=== PATIENT | male | born 1940 | race Caucasian/White ===

== ENCOUNTER → 2016-08-18 | Outpatient (CLI) | payer MEDICARE, BC | LOC: MW.CHNEURO 08:00 | PROVIDERS: ATTEND Psychiatry & Neurology Neuromuscular Medicine | DX: M79.673 Pain in unspecified foot (principal) | CPT/HCPCS: 99214 ==

== ENCOUNTER → 2016-09-30 | Outpatient (CLI) | payer MEDICARE, BC | LOC: MW.CHGS 08:00 | PROVIDERS: ATTEND Surgery | DX: R10.32 Left lower quadrant pain (principal); R19.4 Change in bowel habit; Z86.010 Personal history of colon polyps; J44.9 Chronic obstructive pulmonary disease, unspecified | CPT/HCPCS: 99214 ==

== ENCOUNTER 2016-10-22 08:50 | Day surgery (SDC) | payer MEDICARE, BC ==
[~2016-10-22 08:50] MED LIST: Lactated Ringers 1,000 ML IV SCH; Lidocaine 2% 5 ML SDV ONE; Propofol 200 MG/20 ML SDV ONE
--- NOTE | 2016-10-22 09:35 | PCM.PREANE ---
Preanesthetic Assessment - Anesthesia/Transfusion/Family Hx Anesthesia History: Prior Anesthesia Without Reaction Other Type of Anesthesia Reaction Comment: Denies any known problems in past Family History of Anesthesia Reaction: No Transfusion History: No Prior Transfusion(s) Intubation History: Unknown - Review of Systems General: No Symptoms Pulmonary: No Symptoms Cardiovascular: No Symptoms Neurological: No Symptoms Other: Reports: None - Physical Assessment O2 Sat by Pulse Oximetry: 95 Respiratory Rate: 16 Vital Signs: Last Vital Signs Temp 36.4 C 10/22/16 09:17 Pulse 90 10/22/16 09:16 Resp 16 10/22/16 09:16 BP 144/96 H 10/22/16 09:17 Pulse Ox 95 10/22/16 09:16 Height: 1.91 m Weight: 126.552 kg ASA Class: 3 Mental Status: Alert & Oriented x3 Airway Class: Mallampati = 2 Dentition: Reports: Normal Dentition Thyro-Mental Finger Breadths: 2 Mouth Opening Finger Breadths: 3 ROM/Head Extension: Limited/Partial Lungs: Clear to auscultation, Normal respiratory effort Cardiovascular: Regular Rate, Regular Rhythm - Allergies Allergies/Adverse Reactions: Allergies Allergy/AdvReac Type Severity Reaction Status Date / Time No Known Allergies Allergy Verified 05/14/16 12:38 - Blood Blood Available: No - Anesthesia Plan Pre-Op Medication Ordered: None - Acknowledgements Anesthesia Type Planned: MAC Pt an Appropriate Candidate for the Planned Anesthesia: Yes Alternatives and Risks of Anesthesia Discussed w Pt/Guardian: Yes Pt/Guardian Understands and Agrees with Anesthesia Plan: Yes PreAnesthesia Questionnaire HEENT History: Reports: Other (See Below) Other HEENT History: wears glasses Cardiovascular History: Reports: High Cholesterol, Hypertension Respiratory History: Reports: COPD, Other (See Below) Other Respiratory History: smoked 2 to 3 packs of cigarettes for approx 35 yrs, quit smoking 20 yrs ago Gastrointestinal History: Reports: Colon Polyp, Diverticulosis, GERD Genitourinary History: Reports: BPH, Renal Calculus, UTI, Recurrent Other Genitourinary History: hx bladder cancer Musculoskeletal History: Reports: Fracture Other Musculoskeletal History: left leg Neurological History: Reports: Neuropathy, Peripheral Psychiatric History: Reports: None Endocrine/Metabolic History: Reports: Diabetes, Type II, Obesity/BMI 30+ Hematologic History: Reports: None Immunologic History: Reports: None Oncologic (Cancer) History: Reports: Bladder Dermatologic History: Reports: None - Infectious Disease History Infectious Disease History: Reports: None - Past Surgical History Head Surgeries/Procedures: Reports: None HEENT Surgical History: Reports: Cataract Surgery Cardiovascular Surgical History: Reports: None Respiratory Surgical History: Reports: None GI Surgical History: Reports: Appendectomy, Colonoscopy, EGD Other Female Surgeries/Procedures: multiple cystoscopies Male Surgical History: Reports: Kidney Stone Extraction, TURBT-Transurethral Resection of Bladder Tumor Endocrine Surgical History: Reports: None Neurological Surgical History: Reports: None Musculoskeletal Surgical History: Reports: ORIF Other Musculoskeletal Surgeries/Procedures:: left leg with hardware Oncologic Surgical History: Reports: Other (See Below) Other Oncologic Surgeries/Procedures: TURBT Dermatological Surgical History: Reports: None - SUBSTANCE USE Smoking Status *Q: Former Smoker Tobacco Use Within Last Twelve Months: Smokeless Tobacco Days Per Week of Alcohol Use: 7 Number of Drinks Per Day: 2 Total Drinks Per Week: 14 Recreational Drug Use History: No - HOME MEDS Home Medications: Home Meds Metoprolol Succinate [Toprol XL] 100 mg PO DAILY 10/05/13 [History] atorvaSTATin [Lipitor] 20 mg PO BEDTIME 10/05/13 [History] metFORMIN [Glucophage] 1,000 mg PO DAILY 06/05/14 [History] Tamsulosin [Flomax] 0.4 mg PO DAILY 02/26/15 [History] Aspirin [[place] Aspirin] 81 mg PO DAILY 10/20/16 [History] Famotidine 40 mg PO ASDIRECTED 10/20/16 [History] Lisinopril 20 mg PO DAILY 10/20/16 [History] - CURRENT (IN HOUSE) MEDS Current Meds: Current Medications Lactated Ringer's (Ringers, Lactated) 1,000 mls @ 125 mls/hr IV ASDIRECTED [facility] Last Admin: 10/22/16 09:15 Dose: 125 mls/hr Discontinued Medications Lidocaine (Xylocaine-Mpf 2%) Confirm Administered Dose 5 ml .ROUTE .STK-MED ONE Stop: 10/22/16 07:34 Propofol (Diprivan 20 Ml) Confirm Administered Dose 400 mg .ROUTE .STK-MED ONE Stop: 10/22/16 07:35
[2016-10-22] MEDS ORDERED: Labetalol 100 MG/20 ML MDV ONE (10:14)
--- NOTE | 2016-10-22 10:42 | PCM.OPNOTE ---
- General Post-Op/Procedure Note Date of Surgery/Procedure: 10/22/16 Operative Procedure(s): Colonoscopy with snare sigmoid polypectomy and cold ascending colon and descending colon polypectomies Pre Op Diagnosis: Personal history of colon polyps. Decreased stool caliber. Left lower quadrant abdominal pain. Post-Op Diagnosis: Ascending, descending and sigmoid polyps Anesthesia Technique: MAC (ASA III) Primary Surgeon: Yanick Mckenzie Condition: Good Free Text/Narrative:: Dictation [id number] CPT 52698 and [id number]
[2016-10-22] MEDS ORDERED: Lactated Ringers 1,000 ML IV SCH (10:45)
--- NOTE | 2016-10-22 11:01 | PCM.POSTAN ---
POST ANESTHESIA ASSESSMENT - MENTAL STATUS Mental Status: alert, oriented - RESPIRATORY Respiratory Status: respiratory rate WNL, airway patent, O2 saturation stable - CARDIOVASCULAR CV Status: pulse rate WNL, blood pressure stable - GASTROINTESTINAL GI Status: no symptoms - POST OP HYDRATION Hydration Status: adequate & stable - OBSERVATIONS Free Text/Narrative:: no anesthesia problems
[2016-10-22 11:49] VITALS: BP 135/97
--- NOTE | 2016-10-22 13:49 | OR ---
SURGEON: Yanick Mckenzie M.D. DATE OF PROCEDURE: 10/22/2016 OPERATION PERFORMED: Colonoscopy with snare sigmoid polypectomy and cold descending colon, and ascending colon polypectomy. ANESTHESIA: MAC. ASA CLASSIFICATION: III. PREOPERATIVE DIAGNOSES: 1. Personal history of colon polyps. 2. Change in bowel habits. 3. Decreased stool caliber. POSTOPERATIVE DIAGNOSIS: Sigmoid descending colon and ascending colon polyps. DESCRIPTION OF PROCEDURE: The patient was taken to the endoscopy room and positioned on the endoscopy table in the left lateral decubitus position. Time-out was called for appropriate identification of the patient and procedure. The colonoscope was inserted into the rectum and advanced without significant difficulty to the cecum, where the colonoscope was retroflexed to visualize the ascending colon from below. The colonoscope was then straightened and slowly withdrawn. Two polyps were encountered in the ascending colon and removed with the cold biopsy forceps. The colonoscope was further withdrawn visualizing the transverse colon, descending colon, where another polyp was encountered and again removed with the cold biopsy forceps. A larger polyp was encountered in the sigmoid colon and removed with a snare electrocautery and recovered. The colonoscope was then reinserted and the polypectomy site was inspected. No bleeding was noted. The colonoscope was then withdrawn to the rectum and retroflexed to visualize the anal orifice from above. No acute hemorrhoidal changes were noted. No distal colon polyps or tumors were identified. The colonoscope was then straightened, the rectum aspirated, and the colonoscope removed. The patient tolerated the procedure well and was taken to the recovery room in stable condition. ANDREW / SANTA /[id number]
== END 2016-10-22 11:33 | disposition home or self-care (01) ==
LOC: MW.SDS 08:50
PROVIDERS: ATTEND Surgery
PROC: 0DBK8ZZ Excision of Ascending Colon, Via Natural or Artificial Opening Endoscopic (ICD-10-PCS; principal; 2016-10-22)
PROC: 0DBL8ZZ Excision of Transverse Colon, Via Natural or Artificial Opening Endoscopic (ICD-10-PCS; 2016-10-22)
PROC: 0DBM8ZZ Excision of Descending Colon, Via Natural or Artificial Opening Endoscopic (ICD-10-PCS; 2016-10-22)
PROC: 0DBN8ZZ Excision of Sigmoid Colon, Via Natural or Artificial Opening Endoscopic (ICD-10-PCS; 2016-10-22)
DX: Z12.11 Encounter for screening for malignant neoplasm of colon (principal); D12.2 Benign neoplasm of ascending colon; D12.4 Benign neoplasm of descending colon; D12.3 Benign neoplasm of transverse colon; D12.5 Benign neoplasm of sigmoid colon; Z86.010 Personal history of colon polyps; K21.9 Gastro-esophageal reflux disease without esophagitis; N40.0 Benign prostatic hyperplasia without lower urinary tract symptoms; J44.9 Chronic obstructive pulmonary disease, unspecified; I10 Essential (primary) hypertension; E78.5 Hyperlipidemia, unspecified; E78.00 Pure hypercholesterolemia, unspecified; E11.42 Type 2 diabetes mellitus with diabetic polyneuropathy; E66.9 Obesity, unspecified; Z87.442 Personal history of urinary calculi; Z87.440 Personal history of urinary (tract) infections; Z87.891 Personal history of nicotine dependence; Z85.51 Personal history of malignant neoplasm of bladder; Z79.82 Long term (current) use of aspirin; Z79.84 Long term (current) use of oral hypoglycemic drugs; Z79.899 Other long term (current) drug therapy; Z98.49 Cataract extraction status, unspecified eye; Z90.49 Acquired absence of other specified parts of digestive tract; Z98.890 Other specified postprocedural states; Z68.34 Body mass index [BMI] 34.0-34.9, adult
CPT/HCPCS: 45380; 45385; 88305; J7120; 00810; J2704

== ENCOUNTER 2016-11-24 11:53 | Day surgery (SDC) | payer MEDICARE, BC ==
[~2016-11-24 11:53] MED LIST changes: -Lidocaine 2% 5 ML SDV ONE; -Propofol 200 MG/20 ML SDV ONE
--- NOTE | 2016-11-24 12:38 | PCM.PREANE ---
Preanesthetic Assessment - Anesthesia/Transfusion/Family Hx Anesthesia History: Prior Anesthesia Without Reaction Other Type of Anesthesia Reaction Comment: Denies any known problems in past Family History of Anesthesia Reaction: No Transfusion History: No Prior Transfusion(s) Intubation History: Unknown - Review of Systems General: No Symptoms Pulmonary: No Symptoms Cardiovascular: No Symptoms Gastrointestinal: No symptoms Neurological: No Symptoms Other: Reports: None - Physical Assessment Height: 1.91 m Weight: 125.192 kg ASA Class: 3 Mental Status: Alert & Oriented x3 Airway Class: Mallampati = 2 Dentition: Reports: Normal Dentition, Friendly(s) (multiple) Thyro-Mental Finger Breadths: 3 Mouth Opening Finger Breadths: 3 ROM/Head Extension: Limited/Partial Lungs: Clear to auscultation, Normal respiratory effort Cardiovascular: Regular Rate, Regular Rhythm - Allergies Allergies/Adverse Reactions: Allergies Allergy/AdvReac Type Severity Reaction Status Date / Time No Known Allergies Allergy Verified 05/14/16 12:38 - Blood Blood Available: No - Anesthesia Plan Pre-Op Medication Ordered: None Beta Yeimi: Metoprolol Med Last Dose Date: 11/24/16 Med Last Dose Time: 06:30 - Acknowledgements Anesthesia Type Planned: General Anesthesia Pt an Appropriate Candidate for the Planned Anesthesia: Yes Alternatives and Risks of Anesthesia Discussed w Pt/Guardian: Yes Pt/Guardian Understands and Agrees with Anesthesia Plan: Yes PreAnesthesia Questionnaire HEENT History: Reports: Other (See Below) Other HEENT History: wears glasses Cardiovascular History: Reports: High Cholesterol, Hypertension Respiratory History: Reports: COPD, Other (See Below) Other Respiratory History: smoked 2 to 3 packs of cigarettes for approx 35 yrs, quit smoking 20 yrs ago Gastrointestinal History: Reports: Colon Polyp, Diverticulosis, GERD Genitourinary History: Reports: BPH, Renal Calculus, UTI, Recurrent Other Genitourinary History: hx transitional cell bladder cancer Musculoskeletal History: Reports: Fracture Other Musculoskeletal History: left leg Neurological History: Reports: Neuropathy, Peripheral Psychiatric History: Reports: None Endocrine/Metabolic History: Reports: Diabetes, Type II, Obesity/BMI 30+ Hematologic History: Reports: None Immunologic History: Reports: None Oncologic (Cancer) History: Reports: Bladder Dermatologic History: Reports: None - Infectious Disease History Infectious Disease History: Reports: None - Past Surgical History Head Surgeries/Procedures: Reports: None HEENT Surgical History: Reports: Cataract Surgery Cardiovascular Surgical History: Reports: None Respiratory Surgical History: Reports: None GI Surgical History: Reports: Appendectomy, Colonoscopy, EGD Other Female Surgeries/Procedures: multiple cystoscopies Male Surgical History: Reports: Kidney Stone Extraction, TURBT-Transurethral Resection of Bladder Tumor Endocrine Surgical History: Reports: None Neurological Surgical History: Reports: None Musculoskeletal Surgical History: Reports: ORIF Other Musculoskeletal Surgeries/Procedures:: left leg with hardware Oncologic Surgical History: Reports: Other (See Below) Other Oncologic Surgeries/Procedures: TURBT Dermatological Surgical History: Reports: None - SUBSTANCE USE Smoking Status *Q: Former Smoker Tobacco Use Within Last Twelve Months:  Days Per Week of Alcohol Use: 7 Number of Drinks Per Day: 2 Total Drinks Per Week: 14 Recreational Drug Use History: No - HOME MEDS Home Medications: Home Meds Metoprolol Succinate [Toprol XL] 100 mg PO DAILY 10/05/13 [History] atorvaSTATin [Lipitor] 20 mg PO BEDTIME 10/05/13 [History] Tamsulosin [Flomax] 0.4 mg PO DAILY 02/26/15 [History] Aspirin [[place] Aspirin] 81 mg PO DAILY 10/20/16 [History] Famotidine 40 mg PO ASDIRECTED 10/20/16 [History] Lisinopril 20 mg PO DAILY 10/20/16 [History] metFORMIN HCl [Glucophage] 500 mg PO BID 11/19/16 [History] - CURRENT (IN HOUSE) MEDS Current Meds: Current Medications Lactated Ringer's (Ringers, Lactated) 1,000 mls @ 100 mls/hr IV ASDIRECTED [facility] Last Admin: 11/24/16 12:12 Dose: 100 mls/hr
[2016-11-24] MEDS ORDERED: fentaNYL 250 MCG/5 ML SDV ONE (12:50)
[2016-11-24] MEDS ORDERED: Ketorolac 30 MG/ML SDV ONE (12:50)
[2016-11-24] MEDS ORDERED: Propofol 200 MG/20 ML SDV ONE (12:50)
[2016-11-24] MEDS ORDERED: Midazolam 1 MG/ML 2 ML SDV ONE (12:50)
[2016-11-24] MEDS ORDERED: Lidocaine 2% 5 ML SDV ONE (12:50)
[2016-11-24] MEDS ORDERED: Ondansetron 4 MG/2 ML SDV ONE (12:50)
--- NOTE | 2016-11-24 15:24 | PCM48HPAN ---
Post Anesthesia Note - EVALUATION WITHIN 48HRS OF ANESTHETIC Vital Signs in Normal Range: Yes Patient Participated in Evaluation: Yes Respiratory Function Stable: Yes Airway Patent: Yes Cardiovascular Function Stable: Yes Hydration Status Stable: Yes Pain Control Satisfactory: Yes Nausea and Vomiting Control Satisfactory: Yes Mental Status Recovered: Yes
[2016-11-24 16:09] VITALS: BP 132/80
--- NOTE | 2017-02-01 23:15 | OR ---
SURGEON: Ever Urbina M.D. DATE OF PROCEDURE: 11/24/2016 PREOPERATIVE DIAGNOSIS: History of bladder tumor. POSTOPERATIVE DIAGNOSIS: History of bladder tumor. OPERATION: Cystoscopy. FINDINGS: No tumors found. DESCRIPTION: The patient was given general anesthesia, placed in dorsal lithotomy position, prepped and draped in sterile drapes. Cystourethroscopy was done using the 22- [place] cystoscope. The urethra was unremarkable. He has partial prostatic obstruction. The inside of the bladder showed no tumors. He had 2+ trabeculations. The patient tolerated the procedure well and was taken to the recovery room in good condition. MARTHA / SANTA /[id number]
== END 2016-11-24 16:15 | disposition home or self-care (01) ==
LOC: MW.SDS 11:53
PROVIDERS: ATTEND Urology
DX: N40.0 Benign prostatic hyperplasia without lower urinary tract symptoms (principal); E78.00 Pure hypercholesterolemia, unspecified; I10 Essential (primary) hypertension; J44.9 Chronic obstructive pulmonary disease, unspecified; E11.42 Type 2 diabetes mellitus with diabetic polyneuropathy; E66.9 Obesity, unspecified; Z85.51 Personal history of malignant neoplasm of bladder; Z87.891 Personal history of nicotine dependence; Z87.442 Personal history of urinary calculi; Z87.440 Personal history of urinary (tract) infections; Z86.010 Personal history of colon polyps; Z79.82 Long term (current) use of aspirin; Z79.84 Long term (current) use of oral hypoglycemic drugs; Z79.899 Other long term (current) drug therapy; Z68.34 Body mass index [BMI] 34.0-34.9, adult; Z90.49 Acquired absence of other specified parts of digestive tract; Z90.89 Acquired absence of other organs; Z98.890 Other specified postprocedural states
CPT/HCPCS: 52000; J1885; J2250; J2405; J3010; J7120; 00910; J2704

== ENCOUNTER 2018-08-08 06:25 | Day surgery (SDC) | payer MEDICARE, BC ==
[~2018-08-08 06:25] MED LIST changes: +ceFAZolin 2 GM in Premix Bag 1 BAG IV SCH
[2018-08-08] MEDS ORDERED: fentaNYL 100 MCG/2 ML SDV ONE ×2 (07:04→09:32)
[2018-08-08] MEDS ORDERED: Propofol 200 MG/20 ML SDV ONE (07:04)
[2018-08-08] MEDS ORDERED: Bupivacaine 0.5% 10 ML SDV ONE (07:13)
[2018-08-08] MEDS ORDERED: Lidocaine 1% 20 ML MDV ONE (07:14)
[2018-08-08] MEDS ORDERED: Heparin Sodium 100 Units/ML 3 ML Syringe ONE ×3 (07:14→10:39)
--- NOTE | 2018-08-08 08:05 | PCM.PREANE ---
Preanesthetic Assessment - Anesthesia/Transfusion/Family Hx Anesthesia History: Prior Anesthesia Without Reaction Other Type of Anesthesia Reaction Comment: Denies any known problems in past Family History of Anesthesia Reaction: No Transfusion History: No Prior Transfusion(s) Intubation History: Unknown - Review of Systems General: No Symptoms Cardiovascular: No Symptoms Gastrointestinal: No Symptoms Neurological: No Symptoms Other: Reports: None - Physical Assessment NPO Status Date: 08/07/18 O2 Sat by Pulse Oximetry: 94 Respiratory Rate: 16 Vital Signs: Last Vital Signs Temp 97.2 F 08/08/18 07:10 Pulse 91 08/08/18 07:10 Resp 16 08/08/18 07:10 BP 128/92 H 08/08/18 07:10 Pulse Ox 94 L 08/08/18 07:10 Height: 6 ft 3 in Weight: 121.563 kg ASA Class: 3 Airway Class: Mallampati = 3 ROM/Head Extension: Full Lungs: Clear to Auscultation, Normal Respiratory Effort Cardiovascular: Regular Rate, Regular Rhythm - Lab Values: Laboratory Last Values POC Glucose 148 mg/dL (60-110) H 08/08/18 07:01 - Allergies Allergies/Adverse Reactions: Allergies Allergy/AdvReac Type Severity Reaction Status Date / Time No Known Allergies Allergy Verified 08/03/18 12:30 - Blood Blood Available: No - Anesthesia Plan Pre-Op Medication Ordered: None - Acknowledgements Anesthesia Type Planned: General Anesthesia Pt an Appropriate Candidate for the Planned Anesthesia: Yes Alternatives and Risks of Anesthesia Discussed w Pt/Guardian: Yes Pt/Guardian Understands and Agrees with Anesthesia Plan: Yes Additional Comments: PMH: lung cancer with bony mets, gerd, BPH, COPD- no home O2, DM2, HTN, HLD, periph neuropathy PLAN: GET with videolaryngoscopy PreAnesthesia Questionnaire HEENT History: Reports: Other (See Below) Other HEENT History: wears glasses Cardiovascular History: Reports: High Cholesterol, Hypertension Respiratory History: Reports: COPD, Other (See Below) Other Respiratory History: smoked 2 to 3 packs of cigarettes for approx 35 yrs, quit smoking in 1996, 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 Gastrointestinal History: Reports: Colon Polyp, Diverticulosis, GERD Genitourinary History: Reports: BPH, Renal Calculus, UTI, Recurrent Other Genitourinary History: hx transitional cell bladder cancer Musculoskeletal History: Reports: Fracture Other Musculoskeletal History: left leg Neurological History: Reports: Neuropathy, Peripheral Psychiatric History: Reports: None Endocrine/Metabolic History: Reports: Diabetes, Type II, Obesity/BMI 30+ Hematologic History: Reports: None Immunologic History: Reports: None Oncologic (Cancer) History: Reports: Bladder, Lung Dermatologic History: Reports: None - Infectious Disease History Infectious Disease History: Reports: None - Past Surgical History Head Surgeries/Procedures: Reports: None HEENT Surgical History: Reports: Cataract Surgery Cardiovascular Surgical History: Reports: None Respiratory Surgical History: Reports: Other (See Below) Other Respiratory Surgeries/Procedures: lung bx x2 GI Surgical History: Reports: Appendectomy, Colonoscopy, EGD Other Female Surgeries/Procedures: multiple cystoscopies Male Surgical History: Reports: Kidney Stone Extraction, TURBT-Transurethral Resection of Bladder Tumor Endocrine Surgical History: Reports: None Neurological Surgical History: Reports: None Musculoskeletal Surgical History: Reports: ORIF Other Musculoskeletal Surgeries/Procedures:: left leg with hardware Oncologic Surgical History: Reports: Other (See Below) Other Oncologic Surgeries/Procedures: TURBT, lung bx x2 Dermatological Surgical History: Reports: None - SUBSTANCE USE Smoking Status *Q: Former Smoker Days Per Week of Alcohol Use: 7 Number of Drinks Per Day: 2 Total Drinks Per Week: 14 Recreational Drug Use History: No - HOME MEDS Home Medications: Home Meds Metoprolol Succinate [Toprol XL] 100 mg PO DAILY 10/05/13 [History] atorvaSTATin [Lipitor] 20 mg PO BEDTIME 10/05/13 [History] Tamsulosin [Flomax] 0.4 mg PO DAILY 02/26/15 [History] Aspirin [[place] Aspirin EC] 81 mg PO DAILY 10/20/16 [History] Famotidine 40 mg PO ASDIRECTED 10/20/16 [History] Lisinopril 20 mg PO DAILY 10/20/16 [History] metFORMIN HCl [Glucophage] 500 mg PO BID 11/19/16 [History] Amoxicillin 500 mg PO BID 08/03/18 [History] Ondansetron [Zofran] 8 mg PO ASDIRECTED PRN 08/03/18 [History] Prochlorperazine Maleate 10 mg PO ASDIRECTED PRN 08/03/18 [History] amLODIPine [Norvasc] 5 mg PO DAILY 08/03/18 [History] - CURRENT (IN HOUSE) MEDS Current Meds: Current Medications Cefazolin Sodium/Dextrose 2 gm (/ Premix) 50 mls @ 100 mls/hr IV ONETIME KEYANNA Lactated Ringer's (Ringers, Lactated) 1,000 mls @ 125 mls/hr IV ASDIRECTED [facility] Last Admin: 08/08/18 07:20 Dose: 125 mls/hr Discontinued Medications Bupivacaine HCl (Sensorcaine-Mpf 0.5%) Confirm Administered Dose 10 ml .ROUTE .STK-MED ONE Stop: 08/08/18 07:14 Fentanyl (Sublimaze) Confirm Administered Dose 100 mcg .ROUTE .STK-MED ONE Stop: 08/08/18 07:05 Heparin Sodium (Porcine) (Heparin Lock Flush 100 Units/Ml) Confirm Administered Dose 300 unit .ROUTE .STK-MED ONE Stop: 08/08/18 07:15 Lidocaine HCl (Xylocaine 1%) Confirm Administered Dose 20 ml .ROUTE .STK-MED ONE Stop: 08/08/18 07:15 Propofol (Diprivan 20 Ml) Confirm Administered Dose 400 mg .ROUTE .STK-MED ONE Stop: 08/08/18 07:05
[2018-08-08] MEDS ORDERED: Ondansetron 4 MG/2 ML SDV ONE (09:37)
[2018-08-08] MEDS ORDERED: Succinylcholine 200 MG/10 ML MDV ONE (09:37)
[2018-08-08] MEDS ORDERED: Dexamethasone 4 MG/ML 5 ML MDV ONE (09:37)
[2018-08-08] MEDS ORDERED: Phenylephrine/Normal Saline 100 MCG/ML 10 ML Syringe ONE ×2 (09:37→10:15)
[2018-08-08] MEDS ORDERED: Ondansetron 4 MG/2 ML SDV IVPUSH ONE (09:46)
[2018-08-08] MEDS ORDERED: fentaNYL 100 MCG/2 ML SDV IVPUSH PRN (09:46)
[2018-08-08] MEDS ORDERED: ePHEDrine 50 MG/ML SDV ONE (09:50)
[2018-08-08] MEDS ORDERED: Acetaminophen/HYDROcodone 325-10 MG Tab PO PRN (11:11)
[2018-08-08] MEDS ORDERED: Lactated Ringers 1,000 ML IV SCH (11:15)
--- NOTE | 2018-08-08 11:17 | PCM.OPNOTE ---
- General Post-Op/Procedure Note Date of Surgery/Procedure: 08/08/18 Operative Procedure(s): Placement of long-term IV access port via left internal jugular ultrasound-guided approach. Unsuccessful left cephalic and left subclavian approaches. Pre Op Diagnosis: Stage IV adenocarcinoma of the lung Post-Op Diagnosis: Same. Left pleural effusion Anesthesia Technique: General ET Tube (ASA III) Primary Surgeon: Yanick Mckenzie Secondary Surgeon: Karolina Clark Fluid Replacement, Intraop: 5 Output, Urine Amount: 500 Complications: Unsuccessful left cephalic vein and left subclavian vein approaches. Condition: Good Free Text/Narrative:: DICTATION [id number] CPT CODE [id number]
--- NOTE | 2018-08-08 11:34 | CR ---
EXAMINATION: Two-view chest (PA and Lateral views). HISTORY: Portacatheter placement. FINDINGS: The trachea is midline. The cardiomediastinal silhouette is within normal limits. Small moderate left-sided pleural effusion with adjacent atelectasis. A left-sided portacatheter projects over the axillary region with tip in the SVC. Osseous structures appear unremarkable. IMPRESSION: 1. Right-sided portacatheter with tip in good position. 2. Small to moderate left pleural effusion.
--- NOTE | 2018-08-08 11:40 | PCM.POSTAN ---
POST ANESTHESIA ASSESSMENT - MENTAL STATUS Mental Status: Alert, Oriented - RESPIRATORY Respiratory Status: Respiratory Rate WNL, Airway Patent, O2 Saturation Stable, Supplemental Oxygen - CARDIOVASCULAR CV Status: Pulse Rate WNL, Blood Pressure Stable - GASTROINTESTINAL GI Status: No Symptoms - POST OP HYDRATION Hydration Status: Adequate & Stable
--- NOTE | 2018-08-08 13:40 | PCM48HPAN ---
Post Anesthesia Note - EVALUATION WITHIN 48HRS OF ANESTHETIC Vital Signs in Normal Range: Yes Patient Participated in Evaluation: Yes Respiratory Function Stable: Yes Airway Patent: Yes Cardiovascular Function Stable: Yes Hydration Status Stable: Yes Pain Control Satisfactory: Yes Nausea and Vomiting Control Satisfactory: Yes Mental Status Recovered: Yes SaO2: 93 Resp Rate: 14
[2018-08-08 14:00] VITALS: BP 124/70
--- NOTE | 2018-08-09 08:55 | OR ---
SURGEON: Yanick Mckenzie M.D. DATE OF PROCEDURE: 08/08/2018 PROCEDURE PERFORMED: Placement of Bard PowerPort. TRIM MECHANIC: Dr. Clark. ANESTHESIA: General endotracheal. ASA CLASSIFICATION: III. PREOPERATIVE DIAGNOSES: 1. Metastatic adenocarcinoma of the lung. 2. Desire for long-term IV access port for chemotherapy. POSTOPERATIVE DIAGNOSES: 1. Metastatic adenocarcinoma of the lung. 2. Desire for long-term IV access port for chemotherapy. ESTIMATED BLOOD LOSS: 5 mL. INTRAOPERATIVE FLUID REPLACEMENT: 500 mL of crystalloid. DESCRIPTION OF PROCEDURE: The patient was taken to the operating room and placed on the operating table in the supine position. Time-out was called for appropriate identification of the patient and procedure. The initial approach was to be a left deltopectoral incision for cephalic vein. This site had been marked prior to the patient entering the operating room. Sequential compression boots were placed. Following satisfactory attainment of general endotracheal anesthesia, the left upper chest and neck were prepped with Hibiclens solution and sterile drapes were applied. The skin in the left deltopectoral groove was infiltrated with 0.5% Marcaine solution. A skin incision was made and deepened through the subcutaneous tissue, obtaining hemostasis with the use of electrocautery. Dissection was carried into the left deltopectoral groove, but there was no satisfactorily identifiable or usable cephalic vein. Therefore, the approach was abandoned and attempt was made for a left subclavian approach. I was able to cannulate the vein on one occasion, but the catheter would not thread. We attempted multiple times to further access the subclavian vein and only were able to withdraw what appears to be pleural effusion fluid. Some of that fluid was sent for histologic analysis. Since we were unable to cannulate the left subclavian vein, I called my partner, Dr. Clark, to come in for an ultrasound- guided left internal jugular approach. She was able to cannulate the left internal jugular with ultrasound guidance and thread a guidewire. With her assistance, we positioned the catheter in the superior vena cava and placed it in a subcutaneous tunnel to the deltopectoral incision. A pocket was created in the deltopectoral incision for placement of the port. The catheter was noted to irrigate well and flush easily. With care taken to avoid an air embolus, the catheter was clamped and divided. The previously flushed and filled port and catheter were assembled with the lock placed securely over this to secure it. Once that was accomplished, the port was again irrigated with heparinized saline. The flow goes quite easily. The wound was inspected for hemostasis and small bleeding sites were electrocoagulated. The small incision in the left neck was closed with a single Monocryl stitch of 4-0 size. The deltopectoral incision was closed in 2 layers with care taken to avoid damaging the catheter. The subcutaneous tissue was closed with running 3-0 Vicryl. The skin edges were reapproximated with subcuticular 4-0 Monocryl. The incisions were Steri- Stripped and dressed with sterile Tegaderm pads. Chest x-ray is pending. Following emergence from anesthesia and extubation, the patient was taken to recovery room in a stable condition. ANDREW PRATT /[id number]
== END 2018-08-08 13:57 | disposition home or self-care (01) ==
LOC: MW.SDS 06:25
PROVIDERS: ATTEND Surgery
DX: C34.32 Malignant neoplasm of lower lobe, left bronchus or lung (principal); C79.51 Secondary malignant neoplasm of bone; J90 Pleural effusion, not elsewhere classified; I10 Essential (primary) hypertension; E11.40 Type 2 diabetes mellitus with diabetic neuropathy, unspecified; J44.9 Chronic obstructive pulmonary disease, unspecified; E78.00 Pure hypercholesterolemia, unspecified; K21.9 Gastro-esophageal reflux disease without esophagitis; N40.0 Benign prostatic hyperplasia without lower urinary tract symptoms; E66.9 Obesity, unspecified; Z68.33 Body mass index [BMI] 33.0-33.9, adult; Z87.891 Personal history of nicotine dependence; Z79.82 Long term (current) use of aspirin; Z79.84 Long term (current) use of oral hypoglycemic drugs; Z79.899 Other long term (current) drug therapy
CPT/HCPCS: 36561; 71045; 82962; C1776; J0330; J1100; J1642; J2001; J2370; J2405; J2704; J3010; J3490; J7120; 00532

== ENCOUNTER 2018-08-20 09:53 | Emergency (ER) | payer MEDICARE, BC ==
[2018-08-20 11:51] LABS: CHLORIDE,CL 106 mmol/L (98-107); SODIUM,NA 142 mmol/L (136-148)
--- NOTE | 2018-08-20 12:07 | CT ---
INDICATION: pain, hematuria HISTORY: Pain, hematuria. COMPARISON: None. TECHNIQUE: CT of the abdomen and pelvis. No intravenous contrast. Coronal/sagittal reconstruction images. FINDINGS: Lung bases: There is a partially visualized left pleural effusion with ipsilateral atelectasis or consolidation. There is no pericardial or right pleural effusion. Calcifications of the aortic root are partially visualized. There is no basilar pneumothorax. Abdomen/pelvis: There is no solid hepatic mass. No calcified gallstone. No right upper quadrant inflammatory changes. There are low-dense liver lesions which are most likely benign cysts. For example, 9 mm lesion in segment 4 on image 28, series 201. The spleen size is normal. There is no adrenal mass. There is no pancreatic mass, pancreatic duct dilation, or glandular atrophy. 4 mm stone in the right kidney on image 76, series 201. Benign renal cysts. Cortical loss in the left kidney, with calculi in the left intrarenal collecting system. For example, 4-5 mm stone in the left kidney on image 70, series 201. 5-6 mm stone in the left kidney on image 67. There is no obstructive urolith. There is hyperdense material within the urinary bladder, compatible with a blood clot. Direct visualization is suggested. This finding is seen best on image 118 of series 201. There are nonenlarged lymph nodes present in the pelvis. Seminal vesicles are within normal limits. No evidence of a small bowel or colonic obstruction. No abdominal aortic aneurysm. Nonenlarged retroperitoneal lymph nodes. No adenopathy at the gastrohepatic ligament. There is a ventral wall abdominal hernia containing fat. There is no enteric compromise. This defect measures 24 millimeters in transverse dimension. The bone windows demonstrate no suspicious lytic or blastic bone lesions. There are bridging osteophytes at both SI joints. On sagittal reconstruction images, there is discogenic sclerosis and disc height loss at multiple levels. IMPRESSION: 1. Nonobstructive calculi in both intrarenal collecting systems. 2. Hyperdensities within the urinary bladder are likely related to a blood clot. Urologic consultation/direct visualization is suggested to exclude an underlying mass. 3. Benign hepatic/renal cysts. 4. Numerous nonenlarged pelvic/retroperitoneal lymph nodes. No abdominal or pelvic lymphadenopathy by size criteria. Attention on follow-up. 5. Partially visualized small left pleural effusion with ipsilateral atelectasis or consolidation. 6. Report called to Dr. Barrios, emergency department, 08/20/2018, 12:02 p.m. Dictated by Mario Farris MD @ 08/20/2018 12:05:38 PM Please note that all CT scans at this facility use dose modulation, iterative reconstruction, and/or weight-based dosing when appropriate to reduce radiation dose to as low as reasonably achievable. Dictated by: Mario Farris MD @ 08/20/2018 12:05:49 (Electronically Signed)
[2018-08-20] MEDS ORDERED: Sodium Chloride 0.9% 1,000 ML IV ONE (12:25)
--- NOTE | 2018-08-20 12:25 | EDM.PDOC ---
ED HPI GENERAL MEDICAL PROBLEM - General Chief Complaint: Genitourinary Problem Stated Complaint: URINATING BLOOD Time Seen by Provider: 08/20/18 10:38 Source of Information: Reports: Patient History Limitations: Reports: No Limitations - History of Present Illness INITIAL COMMENTS - FREE TEXT/NARRATIVE: HISTORY AND PHYSICAL: History of present illness: Patient is a 78-year-old male presents to the ED today for urinating blood clots 2 days. Patient states that he called Dr. Camacho's office (urology) and has an appointment already scheduled for this Wednesday. Patient states he does have a history of bladder cancer,but has been free of the cancer for 8 years. Patient states he is actively being treated for lung cancer and receives chemotherapy. Patient states his next session chemotherapy as this . Patient does have a history of frequent urinary tract infections in which he is on Amoxicillin daily for prevention by Dr. Camacho.. Patient does follow with Dr. Camacho in his primary care provider, Dr. Serna, for monitoring of his health routinely. Patient states the blood clots are painful to pass. Patient states he also has a vague pain in his left flank area. Patient states he's had this pain off and on in the past but he has noticed others correlated this time with the blood in his urine. Patient does not express any other symptoms at this time. Patient denies fever, chills, chest pain, shortness of breath, or cough. Denies headache, neck stiff ness, change in vision, syncope, or near syncope. Denies nausea, vomiting, diarrhea, constipation. Has not noted any blood in stool. Patient has been eating and drinking appropriately. Patient does have a history of bladder cancer, lung cancer. Review of systems: As per history of present illness and below otherwise all systems reviewed and negative. Past medical history: As per history of present illness and as reviewed below otherwise noncontributory. Surgical history: As per history of present illness and as reviewed below otherwise noncontributory. Social history: See social history for further information Family history: As per history of present illness and as reviewed below otherwise noncontributory. Physical exam: General: Patient is alert, oriented, and in no acute distress. Patient sitting comfortably on exam table. HEENT: Atraumatic, normocephalic, pupils equal and reactive bilaterally, negative for conjunctival pallor or scleral icterus, mucous membranes moist, TMs normal bilaterally, throat clear, neck supple, nontender, trachea midline. No drooling or trismus noted. No meningeal signs. No hot potato voice noted. Lungs: Clear to auscultation, breath sounds equal bilaterally, chest nontender. Heart: S1S2, regular rate and rhythm without overt murmur Abdomen: Obese, soft, nondistended, nontender. Negative for masses or hepatosplenomegaly. Negative for costovertebral tenderness. Pelvis: Stable nontender. Genitourinary: Deferred. Rectal: Deferred. Skin: Intact, warm, dry. No lesions or rashes noted. Extremities: Atraumatic, negative for cords or calf pain. Neurovascular unremarkable. Neuro: Awake, alert, oriented. Cranial nerves II through XII unremarkable. Cerebellum unremarkable. Motor and sensory unremarkable throughout. Exam nonfocal. Notes: Saline was offered to patient but declines at this time. Vitals reviewed by me. Discussed results with patient. Patient does have an appointment already scheduled for Wednesday with Dr. Camacho. Discussed the importance for keeping this follow-up as well as follow up with primary care provider. Supportive care measures were reviewed and discussed. Voices understanding and is agreeable to plan of care. Denies any further questions or concerns at this time. Diagnostics: CBC, CMP, UA, abdominal and pelvic CT, bladder ultrasound Therapeutics: None Prescription: Bactrim Impression: Urinary tract infection Hematuria Bilateral intra-renal calculi, nonobstructive Plan: 1. You can alternate ibuprofen and Tylenol as directed for pain and discomfort. Take medication as prescribed. 2. Follow-up with urology as scheduled. Follow up with your primary care provider as discussed. 3. Return to the ED as needed and as discussed. Definitive disposition and diagnosis as appropriate pending reevaluation and review of above. - Related Data Allergies Allergy/AdvReac Type Severity Reaction Status Date / Time No Known Allergies Allergy Verified 08/20/18 10:33 Home Meds: Home Meds Metoprolol Succinate [Toprol XL] 100 mg PO DAILY 10/05/13 [History] atorvaSTATin [Lipitor] 20 mg PO BEDTIME 10/05/13 [History] Tamsulosin [Flomax] 0.4 mg PO DAILY 02/26/15 [History] Aspirin [[place] Aspirin EC] 81 mg PO DAILY 10/20/16 [History] Famotidine 40 mg PO ASDIRECTED 10/20/16 [History] Lisinopril 20 mg PO DAILY 10/20/16 [History] metFORMIN HCl [Glucophage] 500 mg PO BID 11/19/16 [History] Amoxicillin 500 mg PO BID 08/03/18 [History] amLODIPine [Norvasc] 5 mg PO DAILY 08/03/18 [History] Folic Acid 1 mg PO DAILY 08/20/18 [History] Past Medical History HEENT History: Reports: Other (See Below) Other HEENT History: wears glasses Cardiovascular History: Reports: High Cholesterol, Hypertension Respiratory History: Reports: COPD, Other (See Below) Other Respiratory History: smoked 2 to 3 packs of cigarettes for approx 35 yrs, quit smoking in 1996, 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 Gastrointestinal History: Reports: Colon Polyp, Diverticulosis, GERD Genitourinary History: Reports: BPH, Renal Calculus, UTI, Recurrent Other Genitourinary History: hx transitional cell bladder cancer Musculoskeletal History: Reports: Fracture Other Musculoskeletal History: left leg Neurological History: Reports: Neuropathy, Peripheral Psychiatric History: Reports: None Endocrine/Metabolic History: Reports: Diabetes, Type II, Obesity/BMI 30+ Hematologic History: Reports: None Immunologic History: Reports: None Oncologic (Cancer) History: Reports: Bladder, Lung Dermatologic History: Reports: None - Infectious Disease History Infectious Disease History: Reports: None - Past Surgical History Head Surgeries/Procedures: Reports: None HEENT Surgical History: Reports: Cataract Surgery Cardiovascular Surgical History: Reports: None Respiratory Surgical History: Reports: Other (See Below) Other Respiratory Surgeries/Procedures: lung bx x2 GI Surgical History: Reports: Appendectomy, Colonoscopy, EGD Male Surgical History: Reports: Kidney Stone Extraction, TURBT-Transurethral Resection of Bladder Tumor Endocrine Surgical History: Reports: None Neurological Surgical History: Reports: None Musculoskeletal Surgical History: Reports: ORIF Other Musculoskeletal Surgeries/Procedures:: left leg with hardware Oncologic Surgical History: Reports: Other (See Below) Other Oncologic Surgeries/Procedures: TURBT, lung bx x2 Dermatological Surgical History: Reports: None Social & Family History - Family History Family Medical History: Noncontributory - Tobacco Use Smoking Status *Q: Former Smoker Used Tobacco, but Quit: Yes Month/Year Tobacco Last Used: unk - Recreational Drug Use Recreational Drug Use: No ED ROS GENERAL - Review of Systems Review Of Systems: ROS reveals no pertinent complaints other than HPI. ED EXAM, RENAL/ - Physical Exam Exam: See Below (See dictation) Course - Orders/Labs/Meds Orders: Active Orders 24 hr Category Date Time Status CULTURE URINE [RM] Stat Lab 08/20/18 11:00 Received Labs: Laboratory Tests 08/20/18 08/20/18 08/20/18 Range/Units 11:00 11:18 11:18 WBC 10.69 (4.0-11.0) K/uL RBC 4.63 (4.50-5.90) M/uL Hgb 13.6 (13.0-17.0) g/dL Hct 41.2 (38.0-50.0) % MCV 89.0 (80.0-98.0) fL MCH 29.4 (27.0-32.0) pg MCHC 33.0 (31.0-37.0) g/dL RDW Std Deviation 47.2 (28.0-62.0) fl RDW Coeff of Eleonora 15 (11.0-15.0) % Plt Count 181 (150-400) K/uL MPV 10.00 (7.40-12.00) fL Add Manual Diff YES Neutrophils % (Manual) 23 L (48.0-80.0) % Band Neutrophils % 1 % Lymphocytes % (Manual) 71 H (16.0-40.0) % Monocytes % (Manual) 3 (0.0-15.0) % Eosinophils % (Manual) 2 (0.0-7.0) % Nucleated RBC % 0.0 /100WBC Absolute Seg Neuts 2.5 (1.4-5.7) Band Neutrophils # 0.1 Lymphocytes # (Manual) 7.6 H (0.6-2.4) Monocytes # (Manual) 0.3 (0.0-0.8) Eosinophils # (Manual) 0.2 (0.0-0.7) Nucleated RBCs # 0 K/uL Sodium 142 (136-148) mmol/L Potassium 4.3 (3.5-5.1) mmol/L Chloride 106 (98-107) mmol/L Carbon Dioxide 24.2 (21.0-32.0) mmol/L BUN 13 (7.0-18.0) mg/dL Creatinine 1.1 (0.8-1.3) mg/dL Est Cr Clr Drug Dosing 68.28 mL/min Estimated GFR (MDRD) > 60.0 ml/min Glucose 138 H (74-106) mg/dL Calcium 8.6 (8.5-10.1) mg/dL Total Bilirubin 0.4 (0.2-1.0) mg/dL AST 23 (15-37) IU/L ALT 59 (14-63) IU/L Alkaline Phosphatase 142 H (46-116) U/L Total Protein 7.1 (6.4-8.2) g/dL Albumin 3.4 (3.4-5.0) g/dL Globulin 3.7 (2.6-4.0) g/dL Albumin/Globulin Ratio 0.9 (0.9-1.6) Urine Color RED Urine Appearance BLOODY Urine pH 6.0 (5.0-8.0) Ur Specific [place] 1.020 (1.001-1.035) Urine Protein 100 H (NEGATIVE) mg/dL Urine Glucose (UA) 100 H (NEGATIVE) mg/dL Urine Ketones TRACE H (NEGATIVE) mg/dL Urine Occult Blood LARGE H (NEGATIVE) Urine Nitrite POSITIVE H (NEGATIVE) Urine Bilirubin SMALL H (NEGATIVE) Urine Ictotest NEGATIVE Urine Urobilinogen 1.0 (<2.0) EU/dL Ur Leukocyte Esterase NEGATIVE (NEGATIVE) Urine RBC TOO NUMEROUS TO CT (0-2/HPF) Urine WBC 0-2 (0-5/HPF) Ur Epithelial Cells RARE (NONE-FEW) Urine Bacteria RARE (NEGATIVE) Urinalysis Comment Meds: Medications Discontinued Medications Generic Name Dose Route Start Last Admin Trade Name Freq PRN Reason Stop Dose Admin Sodium Chloride 1,000 mls @ 999 mls/hr 08/20/18 12:25 08/20/18 13:03 Normal Saline IV 08/20/18 13:25 Not Given STAT ONE Departure - Departure Time of Disposition: 12:57 Disposition: Home, Self-Care 01 Clinical Impression: Renal calculi Urinary tract infection Qualifiers: Urinary tract infection type: site unspecified Hematuria presence: with hematuria Qualified Code(s): N39.0 - Urinary tract infection, site not specified Hematuria Qualifiers: Hematuria type: gross Qualified Code(s): R31.0 - Gross hematuria - Discharge Information Instructions: Kidney Stones, [id number], Urinary Tract Infection, Adult, Hematuria, Adult Referrals: Rigoberto Serna MD [Primary Care Provider] - Forms: ED Department Discharge Additional Instructions: The following information is given to patients seen in the emergency department who are being discharged to home. This information is to outline your options for follow-up care. We provide all patients seen in our emergency department with a follow-up referral. The need for follow-up, as well as the timing and circumstances, are variable depending upon the specifics of your emergency department visit. If you don't have a primary care physician on staff, we will provide you with a referral. We always advise you to contact your personal physician following an emergency department visit to inform them of the circumstance of the visit and for follow-up with them and/or the need for any referrals to a consulting specialist. The emergency department will also refer you to a specialist when appropriate. This referral assures that you have the opportunity for follow-up care with a specialist. All of these measure are taken in an effort to provide you with optimal care, which includes your follow-up. Under all circumstances we always encourage you to contact your private physician who remains a resource for coordinating your care. When calling for follow-up care, please make the office aware that this follow-up is from your recent emergency room visit. If for any reason you are refused follow-up, please contact the [facility] Emergency Department at and asked to speak to the emergency department charge nurse. [facility] [address] [place] [id number] [id number] 1. You can alternate ibuprofen and Tylenol as directed for pain and discomfort. Take medication as prescribed. 2. Follow-up with urology as scheduled. Follow up with your primary care provider as discussed. 3. Return to the ED as needed and as discussed.
--- NOTE | 2018-08-20 12:33 | US ---
INDICATION: Hematuria. COMPARISON: CT scan of the abdomen and pelvis dated 20 August 2018. FINDINGS: An ultrasound of the urinary bladder shows a prevoid volume of 128 cc and a postvoid volume of 64 cc. Heterogeneous enlarged prostate gland extending into the lower portion of the urinary bladder. Dictated by Christofer Crane MD @ 08/20/2018 12:30:50 PM Dictated by: Christofer Crane MD @ 08/20/2018 12:31:05 (Electronically Signed)
[2018-08-20 13:12] VITALS: BP 118/79
== END 2018-08-20 13:14 | disposition home or self-care (01) ==
LOC: MW.ED 09:53
DX: N39.0 Urinary tract infection, site not specified (principal); N20.0 Calculus of kidney; E78.00 Pure hypercholesterolemia, unspecified; I10 Essential (primary) hypertension; E11.9 Type 2 diabetes mellitus without complications; Z79.82 Long term (current) use of aspirin; Z87.891 Personal history of nicotine dependence
CPT/HCPCS: 36415; 74176; 74176-26; 76857; 76857-26; 80053; 81001; 85025; 87086; 99284; 99284-25

== ENCOUNTER 2018-09-01 06:45 | Day surgery (SDC) | payer MEDICARE, BC ==
[~2018-09-01 06:45] MED LIST changes: +Sodium Chloride 0.9% 10 ML SDV IV PRN; +Sodium Chloride 0.9% 10 ML Syringe FLUSH PRN; +Sodium Chloride 0.9% 2.5 ML Syringe FLUSH PRN; +ceFAZolin 2 GM in Premix Bag 1 BAG IV ONE; -ceFAZolin 2 GM in Premix Bag 1 BAG IV SCH
[2018-09-01] MEDS ORDERED: Midazolam 1 MG/ML 2 ML SDV ONE (07:12)
[2018-09-01] MEDS ORDERED: fentaNYL 100 MCG/2 ML SDV ONE (07:12)
[2018-09-01] MEDS ORDERED: Propofol 200 MG/20 ML SDV ONE (07:12)
--- NOTE | 2018-09-01 07:27 | PCM.PREANE ---
Preanesthetic Assessment - Anesthesia/Transfusion/Family Hx Anesthesia History: Prior Anesthesia Without Reaction Other Type of Anesthesia Reaction Comment: Denies any known problems in past Transfusion History: No Prior Transfusion(s) Intubation History: Unknown - Review of Systems General: No Symptoms Pulmonary: No Symptoms Cardiovascular: No Symptoms Gastrointestinal: No Symptoms Neurological: No Symptoms Other: Reports: None - Physical Assessment NPO Status Date: 09/01/18 NPO Status Time: 06:00 Height: 1.91 m Weight: 119.748 kg ASA Class: 3 Mental Status: Alert & Oriented x3 Airway Class: Mallampati = 3 Dentition: Reports: Missing Tooth/Teeth Thyro-Mental Finger Breadths: 3 Mouth Opening Finger Breadths: 3 ROM/Head Extension: Full Lungs: Clear to Auscultation, Normal Respiratory Effort Cardiovascular: Regular Rate, Regular Rhythm - Allergies Allergies/Adverse Reactions: Allergies Allergy/AdvReac Type Severity Reaction Status Date / Time No Known Allergies Allergy Verified 08/29/18 11:43 - Acknowledgements Anesthesia Type Planned: MAC (with conversion to general anesthesia if needed) Pt an Appropriate Candidate for the Planned Anesthesia: Yes Alternatives and Risks of Anesthesia Discussed w Pt/Guardian: Yes Pt/Guardian Understands and Agrees with Anesthesia Plan: Yes PreAnesthesia Questionnaire HEENT History: Reports: Other (See Below) Other HEENT History: wears glasses, upper partial Cardiovascular History: Reports: High Cholesterol, Hypertension Respiratory History: Reports: COPD (no home oxygen), Other (See Below) Other Respiratory History: smoked 2 to 3 packs of cigarettes for approx 35 yrs, quit smoking in 1996, 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 functional port a cath Gastrointestinal History: Reports: Colon Polyp, Diverticulosis, GERD Genitourinary History: Reports: BPH, Renal Calculus, UTI, Recurrent Other Genitourinary History: hx transitional cell bladder cancer Musculoskeletal History: Reports: Fracture Other Musculoskeletal History: left leg Neurological History: Reports: Neuropathy, Peripheral (patient denies this, and states he has surgery on the left leg for a fracture.) Psychiatric History: Reports: None Endocrine/Metabolic History: Reports: Diabetes, Type II, Obesity/BMI 30+ Hematologic History: Reports: None Immunologic History: Reports: None Oncologic (Cancer) History: Reports: Bladder, Lung Dermatologic History: Reports: None - Infectious Disease History Infectious Disease History: Reports: None - Past Surgical History Head Surgeries/Procedures: Reports: None HEENT Surgical History: Reports: Cataract Surgery Cardiovascular Surgical History: Reports: None Respiratory Surgical History: Reports: Other (See Below) Other Respiratory Surgeries/Procedures: lung bx x2 GI Surgical History: Reports: Appendectomy, Colonoscopy, EGD Other Female Surgeries/Procedures: multiple cystoscopies Male Surgical History: Reports: Kidney Stone Extraction, TURBT-Transurethral Resection of Bladder Tumor Endocrine Surgical History: Reports: None Neurological Surgical History: Reports: None Musculoskeletal Surgical History: Reports: ORIF Other Musculoskeletal Surgeries/Procedures:: left leg with hardware Oncologic Surgical History: Reports: Other (See Below) Other Oncologic Surgeries/Procedures: TURBT, lung bx x2, left christopher cath placement Dermatological Surgical History: Reports: None - SUBSTANCE USE Smoking Status *Q: Former Smoker Days Per Week of Alcohol Use: 7 Number of Drinks Per Day: 2 Total Drinks Per Week: 14 Recreational Drug Use History: No - HOME MEDS Home Medications: Home Meds Metoprolol Succinate [Toprol XL] 100 mg PO DAILY 10/05/13 [History] atorvaSTATin [Lipitor] 20 mg PO BEDTIME 10/05/13 [History] Tamsulosin [Flomax] 0.4 mg PO DAILY 02/26/15 [History] Aspirin [[place] Aspirin EC] 81 mg PO DAILY 10/20/16 [History] Famotidine 40 mg PO ASDIRECTED 10/20/16 [History] Lisinopril 20 mg PO DAILY 10/20/16 [History] metFORMIN HCl [Glucophage] 500 mg PO BID 11/19/16 [History] amLODIPine [Norvasc] 5 mg PO DAILY 08/03/18 [History] Folic Acid 1 mg PO DAILY 08/20/18 [History] Sulfamethoxazole/Trimethoprim [Sulfamethoxazole-Tmp Ds Tablet] 1 tab PO BID [History] - CURRENT (IN HOUSE) MEDS Current Meds: Current Medications Lactated Ringer's (Ringers, Lactated) 1,000 mls @ 100 mls/hr IV ASDIRECTED KEYANNA Sodium Chloride (Saline Flush) 10 ml FLUSH ASDIRECTED PRN PRN Reason: Keep Vein Open Sodium Chloride (Saline Flush) 2.5 ml FLUSH ASDIRECTED PRN PRN Reason: Keep Vein Open Sodium Chloride (Normal Saline) 10 ml IV ASDIRECTED PRN PRN Reason: IV Use Discontinued Medications Fentanyl (Sublimaze) Confirm Administered Dose 100 mcg .ROUTE .STK-MED ONE Stop: 09/01/18 07:13 Cefazolin Sodium/Dextrose 2 gm (/ Premix) 50 mls @ 100 mls/hr IV ONCALL ONE Stop: 09/01/18 00:30 Midazolam HCl (Versed 1 Mg/Ml) Confirm Administered Dose 2 mg .ROUTE .STK-MED ONE Stop: 09/01/18 07:13 Propofol (Diprivan 20 Ml) Confirm Administered Dose 200 mg .ROUTE .STK-MED ONE Stop: 09/01/18 07:13
[2018-09-01] MEDS ORDERED: Iopamidol 408 MG/ML 50 ML SDV ONE (07:42)
[2018-09-01] MEDS ORDERED: Phenylephrine/Normal Saline 100 MCG/ML 10 ML Syringe ONE (08:27)
[2018-09-01] MEDS ORDERED: metFORMIN 500 MG Tab PO SCH (08:30)
[2018-09-01] MEDS ORDERED: Famotidine 20 MG Tab PO SCH (08:45)
--- NOTE | 2018-09-01 08:52 | PCM.POSTAN ---
POST ANESTHESIA ASSESSMENT - MENTAL STATUS Mental Status: Alert, Oriented - RESPIRATORY Respiratory Status: Respiratory Rate WNL, Airway Patent, O2 Saturation Stable - CARDIOVASCULAR CV Status: Pulse Rate WNL, Blood Pressure Stable - GASTROINTESTINAL GI Status: No Symptoms - PAIN Pain Score: 0 - POST OP HYDRATION Hydration Status: Adequate & Stable - OBSERVATIONS Free Text/Narrative:: The patient tolerated the procedure well. There were no apparent anesthetic complications at this time.
[2018-09-01] MEDS ORDERED: Folic Acid 1 MG Tab PO SCH (09:00)
[2018-09-01] MEDS ORDERED: Metoprolol Succinate 50 MG Tab.ER PO SCH (09:00)
[2018-09-01] MEDS ORDERED: amLODIPine 5 MG Tab PO SCH (09:00)
[2018-09-01] MEDS ORDERED: Lisinopril 10 MG Tab PO SCH (09:00)
[2018-09-01] MEDS ORDERED: Sulfamethoxazole/Trimethoprim 800-160 MG Tab PO SCH (09:00)
[2018-09-01] MEDS ORDERED: Tamsulosin 0.4 MG Cap.ER PO SCH (09:00)
[2018-09-01 09:17] VITALS: BP 113/81
--- NOTE | 2018-09-01 09:19 | PCM48HPAN ---
Post Anesthesia Note - EVALUATION WITHIN 48HRS OF ANESTHETIC Vital Signs in Normal Range: Yes Patient Participated in Evaluation: Yes Respiratory Function Stable: Yes Airway Patent: Yes Cardiovascular Function Stable: Yes Hydration Status Stable: Yes Pain Control Satisfactory: Yes Nausea and Vomiting Control Satisfactory: Yes Mental Status Recovered: Yes Resp Rate: 16 - COMMENTS/OBSERVATIONS Free Text/Narrative:: The patient has no complaints at this time. Discharge per criteria.
--- NOTE | 2018-09-01 14:59 | OR ---
SURGEON: Ever Urbina M.D. DATE OF PROCEDURE: 09/01/2018 PREOPERATIVE DIAGNOSIS: Gross hematuria. POSTOPERATIVE DIAGNOSIS: Benign prostatic hyperplasia. OPERATION: Cystoscopy. DESCRIPTION OF PROCEDURE: The patient was given adequate sedation. He was placed in the dorsal lithotomy position, prepped and draped in sterile drapes. A 22-Welsh cystoscope was introduced into the bladder under vision without difficulty. He has large obstructive prostate. The bladder neck side of it is covered with congested veins. The inside of bladder was normal. One bleeder was stopped by using the Bugbee electrode. No other bleeders. With that done, the procedure was terminated. Cystoscope was removed. The bladder was emptied and the patient moved to recovery room in good condition. MARTHA / SANTA /[id number]
[2018-09-01] MEDS ORDERED: atorvaSTATin 20 MG Tab PO SCH (21:00)
== END 2018-09-01 09:41 | disposition home or self-care (01) ==
LOC: MW.SDS 06:45
PROVIDERS: ATTEND Urology
DX: N40.0 Benign prostatic hyperplasia without lower urinary tract symptoms (principal); R31.9 Hematuria, unspecified; I10 Essential (primary) hypertension; E11.9 Type 2 diabetes mellitus without complications; E78.00 Pure hypercholesterolemia, unspecified; J44.9 Chronic obstructive pulmonary disease, unspecified; C34.92 Malignant neoplasm of unspecified part of left bronchus or lung; Z87.891 Personal history of nicotine dependence; Z85.51 Personal history of malignant neoplasm of bladder; Z79.82 Long term (current) use of aspirin; Z79.84 Long term (current) use of oral hypoglycemic drugs; Z79.899 Other long term (current) drug therapy
CPT/HCPCS: 52000; 82962; J2250; J2370; J2704; J3010; J7120; Q9966

== ENCOUNTER 2018-11-01 15:24 | Emergency (ER) | payer MEDICARE, BC ==
[2018-11-01] MEDS ORDERED: Sodium Chloride 0.9% 500 ML IV SCH (15:45)
--- NOTE | 2018-11-01 15:56 | EDM.PDOC ---
ED HPI GENERAL MEDICAL PROBLEM - General Chief Complaint: Cardiovascular Problem Stated Complaint: UNKNOWN Time Seen by Provider: 11/01/18 16:54 - History of Present Illness INITIAL COMMENTS - FREE TEXT/NARRATIVE: HISTORY AND PHYSICAL: History of present illness: Patient 78-year-old white male with history of pulmonary cancer who was undergoing a therapeutic thoracentesis and developed shortness of breath and hypotension he was transported here and has resolution of his shortness of breath and blood pressure is systolic 96 diastolic 50 patient has no chest pain or other complaints at this time he does agree to medical screening and IV fluids Review of systems: As per history of present illness and below otherwise all systems reviewed and negative. Past medical history: As per history of present illness and as reviewed below otherwise noncontributory. Surgical history: As per history of present illness and as reviewed below otherwise noncontributory. Social history: No reported history of drug or alcohol abuse. Family history: As per history of present illness and as reviewed below otherwise noncontributory. Physical exam: HEENT: Atraumatic, normocephalic, pupils reactive, negative for conjunctival pallor or scleral icterus, mucous membranes moist, throat clear, neck supple, nontender, trachea midline. Lungs: Slightly diminished and coarse bilaterally, breath sounds equal bilaterally, chest nontender. Heart: S1S2, regular, negative for clicks, rubs, or JVD. Abdomen: Soft, nondistended, nontender. Negative for masses or hepatosplenomegaly. Negative for costovertebral tenderness. Pelvis: Stable nontender. Genitourinary: Deferred. Rectal: Deferred. Extremities: Atraumatic, negative for cords or calf pain. Neurovascular unremarkable. Neuro: Awake, alert, oriented. Cranial nerves II through XII unremarkable. Cerebellum unremarkable. Motor and sensory unremarkable throughout. Exam nonfocal. Diagnostics: CBC CMP troponin PT/INR chest x-ray EKG Therapeutics: Saline 500 mL bolus Impression: #1 history pulmonary CA #2 dyspneic/hypotensive episode resolved Definitive disposition and diagnosis as appropriate pending reevaluation and review of above. - Related Data Allergies Allergy/AdvReac Type Severity Reaction Status Date / Time No Known Allergies Allergy Verified 11/01/18 15:31 Home Meds: Home Meds Metoprolol Succinate [Toprol XL] 100 mg PO DAILY 10/05/13 [History] atorvaSTATin [Lipitor] 20 mg PO BEDTIME 10/05/13 [History] Tamsulosin [Flomax] 0.4 mg PO DAILY 02/26/15 [History] Aspirin [Baca Aspirin EC] 81 mg PO DAILY 10/20/16 [History] Famotidine 40 mg PO ASDIRECTED 10/20/16 [History] Lisinopril 20 mg PO DAILY 10/20/16 [History] metFORMIN HCl [Glucophage] 500 mg PO BID 11/19/16 [History] amLODIPine [Norvasc] 5 mg PO DAILY 08/03/18 [History] Folic Acid 1 mg PO DAILY 08/20/18 [History] Sulfamethoxazole/Trimethoprim [Sulfamethoxazole-Tmp Ds Tablet] 1 tab PO BID [History] Past Medical History HEENT History: Reports: Other (See Below) Other HEENT History: wears glasses, upper partial Cardiovascular History: Reports: High Cholesterol, Hypertension Respiratory History: Reports: COPD, Other (See Below) Other Respiratory History: smoked 2 to 3 packs of cigarettes for approx 35 yrs, quit smoking in 1996, 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 functional port a cath Gastrointestinal History: Reports: Colon Polyp, Diverticulosis, GERD Genitourinary History: Reports: BPH, Renal Calculus, UTI, Recurrent Other Genitourinary History: hx transitional cell bladder cancer Musculoskeletal History: Reports: Fracture Other Musculoskeletal History: left leg Neurological History: Reports: Neuropathy, Peripheral Psychiatric History: Reports: None Endocrine/Metabolic History: Reports: Diabetes, Type II, Obesity/BMI 30+ Hematologic History: Reports: None Immunologic History: Reports: None Oncologic (Cancer) History: Reports: Bladder, Lung Dermatologic History: Reports: None - Infectious Disease History Infectious Disease History: Reports: None - Past Surgical History Head Surgeries/Procedures: Reports: None HEENT Surgical History: Reports: Cataract Surgery Cardiovascular Surgical History: Reports: None Respiratory Surgical History: Reports: Other (See Below) Other Respiratory Surgeries/Procedures: lung bx x2 GI Surgical History: Reports: Appendectomy, Colonoscopy, EGD Male Surgical History: Reports: Kidney Stone Extraction, TURBT-Transurethral Resection of Bladder Tumor Endocrine Surgical History: Reports: None Neurological Surgical History: Reports: None Musculoskeletal Surgical History: Reports: ORIF Other Musculoskeletal Surgeries/Procedures:: left leg with hardware Oncologic Surgical History: Reports: Other (See Below) Other Oncologic Surgeries/Procedures: TURBT, lung bx x2, left christopher cath placement Dermatological Surgical History: Reports: None Social & Family History - Family History Family Medical History: Noncontributory - Tobacco Use Smoking Status *Q: Former Smoker Used Tobacco, but Quit: Yes Month/Year Tobacco Last Used: 24 years - Recreational Drug Use Recreational Drug Use: No ED ROS GENERAL - Review of Systems Review Of Systems: ROS reveals no pertinent complaints other than HPI. ED EXAM, GENERAL - Physical Exam Exam: See Below (See dictation) Course - Vital Signs Text/Narrative:: Patient's emergency department course is unremarkable he remains asymptomatic I discussed the patient admission for observation in light of the event he declined states a follow-up with his doctor and he feels wonderful. Last Recorded V/S: Last Vital Signs Temp 35.9 C 11/01/18 15:24 Pulse 95 11/01/18 15:24 Resp 20 11/01/18 15:24 BP 70/49 L 11/01/18 15:24 Pulse Ox 93 L 11/01/18 15:24 - Orders/Labs/Meds Orders: Active Orders 24 hr Category Date Time Status EKG Documentation Completion [RC] STAT Care 11/01/18 15:43 Active UA RFX NATALIE AND CULT IF INDIC [URIN] Stat Lab 11/01/18 15:43 Ordered Sodium Chloride 0.9% [Normal Saline] 500 ml Med 11/01/18 15:45 Active IV STAT Medication Orders Sodium Chloride (Normal Saline) 500 mls @ 999 mls/hr IV STAT KEYANNA Last Admin: 11/01/18 16:21 Dose: 999 mls/hr Labs: Laboratory Tests 11/01/18 11/01/18 11/01/18 Range/Units 15:53 15:53 15:53 WBC 6.53 (4.0-11.0) K/uL RBC 3.63 L (4.50-5.90) M/uL Hgb 10.6 L (13.0-17.0) g/dL Hct 32.6 L (38.0-50.0) % MCV 89.8 (80.0-98.0) fL MCH 29.2 (27.0-32.0) pg MCHC 32.5 (31.0-37.0) g/dL RDW Std Deviation 58.6 (28.0-62.0) fl RDW Coeff of Eleonora 18 H (11.0-15.0) % Plt Count 293 (150-400) K/uL MPV 9.40 (7.40-12.00) fL Neut % (Auto) 38.9 L (48.0-80.0) % Lymph % (Auto) 57.7 H (16.0-40.0) % [place] % (Auto) 1.1 (0.0-15.0) % Eos % (Auto) 2.1 (0.0-7.0) % Baso % (Auto) 0.2 (0.0-1.5) % Neut # (Auto) 2.5 (1.4-5.7) K/uL Lymph # (Auto) 3.8 H (0.6-2.4) K/uL [place] # (Auto) 0.1 (0.0-0.8) K/uL Eos # (Auto) 0.1 (0.0-0.7) K/uL Baso # (Auto) 0.0 (0.0-0.1) K/uL Nucleated RBC % 0.0 /100WBC Nucleated RBCs # 0 K/uL INR 1.01 Sodium 141 (136-148) mmol/L Potassium 4.8 (3.5-5.1) mmol/L Chloride 106 (98-107) mmol/L Carbon Dioxide 23.9 (21.0-32.0) mmol/L BUN 26 H (7.0-18.0) mg/dL Creatinine 1.6 H (0.8-1.3) mg/dL Est Cr Clr Drug Dosing TNP Estimated GFR (MDRD) 42.2 ml/min Glucose 133 H (74-106) mg/dL Calcium 8.7 (8.5-10.1) mg/dL Total Bilirubin 0.4 (0.2-1.0) mg/dL AST 27 (15-37) IU/L ALT 39 (14-63) IU/L Alkaline Phosphatase 191 H (46-116) U/L Troponin I < 0.050 (0.000-0.056) ng/mL Total Protein 6.5 (6.4-8.2) g/dL Albumin 2.7 L (3.4-5.0) g/dL Globulin 3.8 (2.6-4.0) g/dL Albumin/Globulin Ratio 0.7 L (0.9-1.6) Meds: Medications Generic Name Dose Route Start Last Admin Trade Name Gabriel PRN Reason Stop Dose Admin Sodium Chloride 500 mls @ 999 mls/hr 11/01/18 15:45 11/01/18 16:21 Normal Saline IV 999 mls/hr STAT KEYANNA Administration Departure - Departure Time of Disposition: 16:54 Disposition: Home, Self-Care 01 Condition: Good Clinical Impression: Pulmonary cancer, Encounter for medical screening examination Referrals: PCP,None [Primary Care Provider] - Forms: ED Department Discharge Additional Instructions: The following information is given to patients seen in the emergency department who are being discharged to home. This information is to outline your options for follow-up care. We provide all patients seen in our emergency department with a follow-up referral. The need for follow-up, as well as the timing and circumstances, are variable depending upon the specifics of your emergency department visit. If you don't have a primary care physician on staff, we will provide you with a referral. We always advise you to contact your personal physician following an emergency department visit to inform them of the circumstance of the visit and for follow-up with them and/or the need for any referrals to a consulting specialist. The emergency department will also refer you to a specialist when appropriate. This referral assures that you have the opportunity for followup care with a specialist. All of these measure are taken in an effort to provide you with optimal care, which includes your followup. Under all circumstances we always encourage you to contact your private physician who remains a resource for coordinating your care. When calling for followup care, please make the office aware that this follow-up is from your recent emergency room visit. If for any reason you are refused follow-up, please contact the [facility] emergency department at and asked to speak to the emergency department charge nurse. Continue current meds push fluids follow primary medical doctor as needed as discussed and return as needed as discussed - My Orders Last 24 Hours: My Active Orders 11/01/18 15:43 EKG Documentation Completion [RC] STAT UA RFX NATALIE AND CULT IF INDIC [URIN] Stat 11/01/18 15:45 Sodium Chloride 0.9% [Normal Saline] 500 ml IV STAT - Assessment/Plan Last 24 Hours: My Active Orders 11/01/18 15:43 EKG Documentation Completion [RC] STAT UA RFX NATALIE AND CULT IF INDIC [URIN] Stat 11/01/18 15:45 Sodium Chloride 0.9% [Normal Saline] 500 ml IV STAT
--- NOTE | 2018-11-01 16:24 | CR ---
EXAMINATION: Portable chest radiograph. HISTORY: Hypertension. Comparison: 2 hours prior FINDINGS: The trachea is midline. The heart is normal in size. The cardiomediastinal silhouette is stable. Trace left pleural effusion, unchanged. No pneumothorax is noted. Stable left-sided pulmonary masses. Left-sided christopher catheter is noted. Osseous structures appear unremarkable. IMPRESSION: 1. Stable chest radiograph with a trace left pleural effusion and several left-sided pulmonary masses. No pneumothorax.
[2018-11-01 16:43] LABS: CHLORIDE,CL 106 mmol/L (98-107); SODIUM,NA 141 mmol/L (136-148)
[2018-11-01 16:59] VITALS: BP 113/62
== END 2018-11-01 17:39 | disposition home or self-care (01) ==
LOC: MW.ED 15:24
DX: C34.90 Malignant neoplasm of unspecified part of unspecified bronchus or lung (principal); E78.00 Pure hypercholesterolemia, unspecified; I10 Essential (primary) hypertension; J44.9 Chronic obstructive pulmonary disease, unspecified; E11.9 Type 2 diabetes mellitus without complications; E66.9 Obesity, unspecified; Z79.84 Long term (current) use of oral hypoglycemic drugs; Z87.891 Personal history of nicotine dependence; Z79.82 Long term (current) use of aspirin; Z79.899 Other long term (current) drug therapy; Z68.30 Body mass index [BMI] 30.0-30.9, adult
CPT/HCPCS: 36415; 71045; 80053; 84484; 85025; 85610; 96360; 99284; J1642; J7040; 99283

== ENCOUNTER 2018-11-04 11:16 | Observation (INO) | payer MEDICARE, BC ==
[2018-11-04] MEDS ORDERED: Sodium Chloride 0.9% 10 ML Syringe FLUSH PRN (11:29)
[2018-11-04] MEDS ORDERED: Sodium Chloride 0.9% 2.5 ML Syringe FLUSH PRN (11:29)
--- NOTE | 2018-11-04 11:36 | EDM.PDOC ---
ED HPI GENERAL MEDICAL PROBLEM - General Chief Complaint: Cardiovascular Problem Stated Complaint: REF FROM ONC Time Seen by Provider: 11/04/18 11:20 - History of Present Illness INITIAL COMMENTS - FREE TEXT/NARRATIVE: HISTORY AND PHYSICAL: History of present illness: Patient is a 78-year-old white male with history of non-small cell pulmonary CA with metastasis who was sent by oncology for a hypotensive episode with a blood pressure of 80/40 states he's felt generally weak with this. A similar episode prior in association with a thoracentesis he was seen in the ER he was given IV fluids evaluated in improvement and was offered observation but declined and was discharged home. He denies chest pain nausea vomiting or palpitations. Review of systems: As per history of present illness and below otherwise all systems reviewed and negative. Past medical history: As per history of present illness and as reviewed below otherwise noncontributory. Surgical history: As per history of present illness and as reviewed below otherwise noncontributory. Social history: No reported history of drug or alcohol abuse. Family history: As per history of present illness and as reviewed below otherwise noncontributory. Physical exam: HEENT: Atraumatic, normocephalic, pupils reactive, mild conjunctival pallor or scleral icterus, mucous membranes moist, throat clear, neck supple, nontender, trachea midline. Lungs: Clear to auscultation, breath sounds equal bilaterally, chest nontender. Heart: S1S2, regular, negative for clicks, rubs, or JVD. Abdomen: Soft, nondistended, nontender. Negative for masses or hepatosplenomegaly. Negative for costovertebral tenderness. Pelvis: Stable nontender. Genitourinary: Deferred. Rectal: Deferred. Extremities: Atraumatic, negative for cords or calf pain. Neurovascular unremarkable. Neuro: Awake, alert, oriented. Cranial nerves II through XII unremarkable. Cerebellum unremarkable. Motor and sensory unremarkable throughout. Exam nonfocal. Diagnostics: CBC CMP troponin PT/INR chest x-ray random cortisol level Therapeutics: Saline 500 mL bolus O2 cardiac cath lab technologist Impression: #1 history of non-small cell pulmonary CA with metastasis #2 hypotensive episode Definitive disposition and diagnosis as appropriate pending reevaluation and review of above. - Related Data Allergies Allergy/AdvReac Type Severity Reaction Status Date / Time No Known Allergies Allergy Verified 11/04/18 11:25 Home Meds: Home Meds Metoprolol Succinate [Toprol XL] 100 mg PO DAILY 10/05/13 [History] atorvaSTATin [Lipitor] 20 mg PO BEDTIME 10/05/13 [History] Tamsulosin [Flomax] 0.4 mg PO DAILY 02/26/15 [History] Aspirin [Martin Aspirin EC] 81 mg PO DAILY 10/20/16 [History] Famotidine 40 mg PO ASDIRECTED 10/20/16 [History] Lisinopril 20 mg PO DAILY 10/20/16 [History] metFORMIN HCl [Glucophage] 500 mg PO BID 11/19/16 [History] amLODIPine [Norvasc] 5 mg PO DAILY 08/03/18 [History] Folic Acid 1 mg PO DAILY 08/20/18 [History] Amoxicillin 1,000 mg PO DAILY 11/04/18 [History] DULoxetine [Cymbalta] 30 mg PO DAILY 11/04/18 [History] Prochlorperazine [Compazine] 5 mg PO PRN 11/04/18 [History] Past Medical History HEENT History: Reports: Other (See Below) Other HEENT History: wears glasses, upper partial Cardiovascular History: Reports: High Cholesterol, Hypertension Respiratory History: Reports: COPD, Other (See Below) Other Respiratory History: smoked 2 to 3 packs of cigarettes for approx 35 yrs, quit smoking in 1996, 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 functional port a cath Gastrointestinal History: Reports: Colon Polyp, Diverticulosis, GERD Genitourinary History: Reports: BPH, Renal Calculus, UTI, Recurrent Other Genitourinary History: hx transitional cell bladder cancer Musculoskeletal History: Reports: Fracture Other Musculoskeletal History: left leg Neurological History: Reports: Neuropathy, Peripheral Psychiatric History: Reports: None Endocrine/Metabolic History: Reports: Diabetes, Type II, Obesity/BMI 30+ Hematologic History: Reports: None Immunologic History: Reports: None Oncologic (Cancer) History: Reports: Bladder, Lung Dermatologic History: Reports: None - Infectious Disease History Infectious Disease History: Reports: None - Past Surgical History Head Surgeries/Procedures: Reports: None HEENT Surgical History: Reports: Cataract Surgery Cardiovascular Surgical History: Reports: None Respiratory Surgical History: Reports: Other (See Below) Other Respiratory Surgeries/Procedures: lung bx x2 GI Surgical History: Reports: Appendectomy, Colonoscopy, EGD Male Surgical History: Reports: Kidney Stone Extraction, TURBT-Transurethral Resection of Bladder Tumor Endocrine Surgical History: Reports: None Neurological Surgical History: Reports: None Musculoskeletal Surgical History: Reports: ORIF Other Musculoskeletal Surgeries/Procedures:: left leg with hardware Oncologic Surgical History: Reports: Other (See Below) Other Oncologic Surgeries/Procedures: TURBT, lung bx x2, left christopher cath placement Dermatological Surgical History: Reports: None Social & Family History - Family History Family Medical History: Noncontributory ED ROS GENERAL - Review of Systems Review Of Systems: ROS reveals no pertinent complaints other than HPI. ED EXAM, GENERAL - Physical Exam Exam: See Below (See dictation) Course - Vital Signs Last Recorded V/S: Last Vital Signs Temp 36.1 C 11/04/18 11:33 Pulse 87 11/04/18 13:48 Resp 20 11/04/18 12:33 BP 100/65 11/04/18 13:48 Pulse Ox 98 11/04/18 13:48 - Orders/Labs/Meds Orders: Active Orders 24 hr Category Date Time Status Cardiac Monitoring [RC] . DIRECTED Care 11/04/18 11:29 Active EKG Documentation Completion [RC] STAT Care 11/04/18 11:29 Active CORTISOL [REF] Stat Lab 11/04/18 12:10 Received Sodium Chloride 0.9% [Normal Saline] 1,000 ml Med 11/04/18 11:45 Active IV STAT Sodium Chloride 0.9% [Saline Flush] Med 11/04/18 11:29 Active 10 ml FLUSH ASDIRECTED PRN Sodium Chloride 0.9% [Saline Flush] Med 11/04/18 11:29 Active 2.5 ml FLUSH ASDIRECTED PRN Saline Lock Insert [OM.PC] Stat Oth 11/04/18 11:29 Ordered Medication Orders Sodium Chloride (Normal Saline) 1,000 mls @ 125 mls/hr IV STAT KEYANNA Last Admin: 11/04/18 12:15 Dose: 125 mls/hr Sodium Chloride (Saline Flush) 10 ml FLUSH ASDIRECTED PRN PRN Reason: Keep Vein Open Sodium Chloride (Saline Flush) 2.5 ml FLUSH ASDIRECTED PRN PRN Reason: Keep Vein Open Labs: Laboratory Tests 06/28/19 06/28/19 06/28/19 Range/Units 12:10 12:10 12:10 WBC 4.27 (4.0-11.0) K/uL RBC 3.21 L (4.50-5.90) M/uL Hgb 9.3 L (13.0-17.0) g/dL Hct 28.7 L (38.0-50.0) % MCV 89.4 (80.0-98.0) fL MCH 29.0 (27.0-32.0) pg MCHC 32.4 (31.0-37.0) g/dL RDW Std Deviation 57.4 (28.0-62.0) fl RDW Coeff of Eleonora 18 H (11.0-15.0) % Plt Count 186 (150-400) K/uL MPV 9.20 (7.40-12.00) fL Neut % (Auto) 3.2 L (48.0-80.0) % Lymph % (Auto) 82.7 H (16.0-40.0) % [place] % (Auto) 11.5 (0.0-15.0) % Eos % (Auto) 2.1 (0.0-7.0) % Baso % (Auto) 0.5 (0.0-1.5) % Neut # (Auto) 0.1 L (1.4-5.7) K/uL Lymph # (Auto) 3.5 H (0.6-2.4) K/uL [place] # (Auto) 0.5 (0.0-0.8) K/uL Eos # (Auto) 0.1 (0.0-0.7) K/uL Baso # (Auto) 0.0 (0.0-0.1) K/uL Nucleated RBC % 0.0 /100WBC Nucleated RBCs # 0 K/uL INR 1.00 Sodium 142 (136-148) mmol/L Potassium 4.3 (3.5-5.1) mmol/L Chloride 107 (98-107) mmol/L Carbon Dioxide 24.3 (21.0-32.0) mmol/L BUN 23 H (7.0-18.0) mg/dL Creatinine 1.2 (0.8-1.3) mg/dL Est Cr Clr Drug Dosing 62.59 mL/min Estimated GFR (MDRD) 58.9 ml/min Glucose 121 H (74-106) mg/dL Calcium 8.7 (8.5-10.1) mg/dL Total Bilirubin 0.3 (0.2-1.0) mg/dL AST 30 (15-37) IU/L ALT 54 (14-63) IU/L Alkaline Phosphatase 155 H (46-116) U/L Troponin I < 0.050 (0.000-0.056) ng/mL Total Protein 6.1 L (6.4-8.2) g/dL Albumin 2.5 L (3.4-5.0) g/dL Globulin 3.6 (2.6-4.0) g/dL Albumin/Globulin Ratio 0.7 L (0.9-1.6) Meds: Medications Generic Name Dose Route Start Last Admin Trade Name Freq PRN Reason Stop Dose Admin Sodium Chloride 1,000 mls @ 125 mls/hr 11/04/18 11:45 11/04/18 12:15 Normal Saline IV 125 mls/hr STAT KEYANNA Administration Sodium Chloride 10 ml 11/04/18 11:29 Saline Flush FLUSH ASDIRECTED PRN Keep Vein Open Sodium Chloride 2.5 ml 11/04/18 11:29 Saline Flush FLUSH ASDIRECTED PRN Keep Vein Open Departure - Departure Time of Disposition: 13:55 Disposition: Refer to Observation Condition: Good Clinical Impression: Pulmonary cancer, Hypotension Forms: ED Department Discharge - My Orders Last 24 Hours: My Active Orders 11/04/18 11:29 Cardiac Monitoring [RC] . DIRECTED EKG Documentation Completion [RC] STAT Sodium Chloride 0.9% [Saline Flush] 10 ml FLUSH ASDIRECTED PRN Sodium Chloride 0.9% [Saline Flush] 2.5 ml FLUSH ASDIRECTED PRN Saline Lock Insert [OM.PC] Stat 11/04/18 11:45 Sodium Chloride 0.9% [Normal Saline] 1,000 ml IV STAT 11/04/18 12:10 CORTISOL [REF] Stat - Assessment/Plan Last 24 Hours: My Active Orders 11/04/18 11:29 Cardiac Monitoring [RC] . DIRECTED EKG Documentation Completion [RC] STAT Sodium Chloride 0.9% [Saline Flush] 10 ml FLUSH ASDIRECTED PRN Sodium Chloride 0.9% [Saline Flush] 2.5 ml FLUSH ASDIRECTED PRN Saline Lock Insert [OM.PC] Stat 11/04/18 11:45 Sodium Chloride 0.9% [Normal Saline] 1,000 ml IV STAT 11/04/18 12:10 CORTISOL [REF] Stat
[2018-11-04] MEDS: Sodium Chloride 0.9% 1,000 ML IV SCH ×2 (12:15→20:19)
--- NOTE | 2018-11-04 12:37 | CR ---
Indication: Pain, shortness of breath Technique: Chest 1 view Comparison: November 01, 2018 Findings/Impression: Stable cardiac size. Left-sided PICC tip terminates at the level of the cavoatrial junction. There is a small left pleural effusion which appears stable. There is a masslike density projecting over the left lower lobe measuring 6.6 x 3.7 cm, stable since November 01, 2018. No pneumothorax. Osseous structures intact. Recommend chest CT for further evaluation. Dictated by Nicole Kendall MD @ Nov 04 2018 12:36PM Signed by Dr. Nicole Kendall @ Nov 04 2018 12:36PM
[2018-11-04 12:55] LABS: CHLORIDE,CL 107 mmol/L (98-107); SODIUM,NA 142 mmol/L (136-148)
[2018-11-04] MEDS ORDERED: Acetaminophen 325 MG Tab PO PRN (14:15)
[2018-11-04] MEDS ORDERED: Albuterol 0.083% 2.5 MG/3 ML Neb Soln NEB PRN (14:15)
[2018-11-04] MEDS ORDERED: Docusate Sodium 100 MG Cap PO PRN (14:15)
[2018-11-04] MEDS ORDERED: Polyethylene Glycol 3350 Powder 17 GM Packet PO PRN (14:15)
[2018-11-04] MEDS ORDERED: Enoxaparin 40 MG/0.4 ML Syringe SUBCUT SCH (14:15)
[2018-11-04] MEDS ORDERED: Ondansetron 4 MG Tab.DIS PO PRN (14:15)
[2018-11-04] MEDS ORDERED: Non-Formulary Medication 1 Each (Famotidine [Famotidine] 40 MG) PO SCH (14:30)
--- NOTE | 2018-11-04 14:46 | PCM.HP ---
H&P History of Present Illness - General Date of Service: 11/04/18 Admit Problem/Dx: Admission Diagnosis/Problem Admission Diagnosis/Problem Hypotension - History of Present Illness Initial Comments - Free Text/Narative: 78 y/o male with history of adenocarcinoma of left lung currently on chemotherapy. [facility] after he was found to be hypotensive SBP 80's. States that for the past 1 week he has been feeling weak and dizzy. Has been taking his medications as indicated and states he has been drinking a good amount of fluids. Denies any recent illness. No cough, chest pain, dyspnea, abdominal pain, dysuria, diarrhea. No blood in stool or rashes on body. In the ER he was started on NS and his blood pressure increased SBP low 100. States he feels better but sometimes dizzy when getting up from laying down. No falls or syncopal episodes. - Related Data Allergies/Adverse Reactions: Allergies Allergy/AdvReac Type Severity Reaction Status Date / Time No Known Allergies Allergy Verified 11/04/18 11:25 Home Medications: Home Meds Metoprolol Succinate [Toprol XL] 100 mg PO DAILY 10/05/13 [History] atorvaSTATin [Lipitor] 20 mg PO BEDTIME 10/05/13 [History] Tamsulosin [Flomax] 0.4 mg PO DAILY 02/26/15 [History] Aspirin [[place] Aspirin EC] 81 mg PO DAILY 10/20/16 [History] Famotidine 40 mg PO ASDIRECTED 10/20/16 [History] Lisinopril 20 mg PO DAILY 10/20/16 [History] metFORMIN HCl [Glucophage] 500 mg PO BID 11/19/16 [History] amLODIPine [Norvasc] 5 mg PO DAILY 08/03/18 [History] Folic Acid 1 mg PO DAILY 08/20/18 [History] Amoxicillin 1,000 mg PO DAILY 11/04/18 [History] DULoxetine [Cymbalta] 30 mg PO DAILY 11/04/18 [History] Prochlorperazine [Compazine] 5 mg PO PRN 11/04/18 [History] Past Medical History HEENT History: Reports: Other (See Below) Other HEENT History: wears glasses, upper partial Cardiovascular History: Reports: High Cholesterol, Hypertension Respiratory History: Reports: COPD, Other (See Below) Other Respiratory History: smoked 2 to 3 packs of cigarettes for approx 35 yrs, quit smoking in 1996, 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 functional port a cath Gastrointestinal History: Reports: Colon Polyp, Diverticulosis, GERD Genitourinary History: Reports: BPH, Renal Calculus, UTI, Recurrent Other Genitourinary History: hx transitional cell bladder cancer Musculoskeletal History: Reports: Fracture Other Musculoskeletal History: left leg Neurological History: Reports: Neuropathy, Peripheral Psychiatric History: Reports: None Endocrine/Metabolic History: Reports: Diabetes, Type II, Obesity/BMI 30+ Hematologic History: Reports: None Immunologic History: Reports: None Oncologic (Cancer) History: Reports: Bladder, Lung Dermatologic History: Reports: None - Infectious Disease History Infectious Disease History: Reports: None - Past Surgical History Head Surgeries/Procedures: Reports: None HEENT Surgical History: Reports: Cataract Surgery Cardiovascular Surgical History: Reports: None Respiratory Surgical History: Reports: Other (See Below) Other Respiratory Surgeries/Procedures: lung bx x2 GI Surgical History: Reports: Appendectomy, Colonoscopy, EGD Male Surgical History: Reports: Kidney Stone Extraction, TURBT-Transurethral Resection of Bladder Tumor Endocrine Surgical History: Reports: None Neurological Surgical History: Reports: None Musculoskeletal Surgical History: Reports: ORIF Other Musculoskeletal Surgeries/Procedures:: left leg with hardware Oncologic Surgical History: Reports: Other (See Below) Other Oncologic Surgeries/Procedures: TURBT, lung bx x2, left christopher cath placement Dermatological Surgical History: Reports: None Social & Family History - Family History Family Medical History: Noncontributory - Tobacco Use Smoking Status *Q: Former Smoker Used Tobacco, but Quit: Yes Month/Year Tobacco Last Used: 1998 - Caffeine Use Caffeine Use: Reports: Coffee - Recreational Drug Use Recreational Drug Use: No H&P Review of Systems - Review of Systems: Review Of Systems: See Below Exam - Exam Exam: See Below - Vital Signs Vital Signs: Last Vital Signs Temp 36.1 C 11/04/18 11:33 Pulse 87 11/04/18 13:48 Resp 20 11/04/18 12:33 BP 100/65 11/04/18 13:48 Pulse Ox 98 11/04/18 13:48 Weight: 111.13 kg - Exam General: Alert, Oriented, Cooperative HEENT: Conjunctiva Clear, Pupils Equal, Pupils Reactive Lungs: Normal Respiratory Effort, Crackles. No: Wheezing Cardiovascular: Regular Rate, Regular Rhythm GI/Abdominal Exam: Normal Bowel Sounds, Soft, Non-Tender, No Distention Extremities: Normal Inspection, No Pedal Edema Skin: Warm, Dry Neuro Extensive - Mental Status: Alert, Oriented x3 - Patient Data Lab Results Last 24 hrs: Laboratory Results - last 24 hr 11/04/18 11/04/18 11/04/18 Range/Units 12:10 12:10 12:10 WBC 4.27 (4.0-11.0) K/uL RBC 3.21 L (4.50-5.90) M/uL Hgb 9.3 L (13.0-17.0) g/dL Hct 28.7 L (38.0-50.0) % MCV 89.4 (80.0-98.0) fL MCH 29.0 (27.0-32.0) pg MCHC 32.4 (31.0-37.0) g/dL RDW Std Deviation 57.4 (28.0-62.0) fl RDW Coeff of Eleonora 18 H (11.0-15.0) % Plt Count 186 (150-400) K/uL MPV 9.20 (7.40-12.00) fL Neut % (Auto) 3.2 L (48.0-80.0) % Lymph % (Auto) 82.7 H (16.0-40.0) % Morrison % (Auto) 11.5 (0.0-15.0) % Eos % (Auto) 2.1 (0.0-7.0) % Baso % (Auto) 0.5 (0.0-1.5) % Neut # (Auto) 0.1 L (1.4-5.7) K/uL Lymph # (Auto) 3.5 H (0.6-2.4) K/uL Morrison # (Auto) 0.5 (0.0-0.8) K/uL Eos # (Auto) 0.1 (0.0-0.7) K/uL Baso # (Auto) 0.0 (0.0-0.1) K/uL Nucleated RBC % 0.0 /100WBC Nucleated RBCs # 0 K/uL INR 1.00 Sodium 142 (136-148) mmol/L Potassium 4.3 (3.5-5.1) mmol/L Chloride 107 (98-107) mmol/L Carbon Dioxide 24.3 (21.0-32.0) mmol/L BUN 23 H (7.0-18.0) mg/dL Creatinine 1.2 (0.8-1.3) mg/dL Est Cr Clr Drug Dosing 62.59 mL/min Estimated GFR (MDRD) 58.9 ml/min Glucose 121 H (74-106) mg/dL Calcium 8.7 (8.5-10.1) mg/dL Total Bilirubin 0.3 (0.2-1.0) mg/dL AST 30 (15-37) IU/L ALT 54 (14-63) IU/L Alkaline Phosphatase 155 H (46-116) U/L Troponin I < 0.050 (0.000-0.056) ng/mL Total Protein 6.1 L (6.4-8.2) g/dL Albumin 2.5 L (3.4-5.0) g/dL Globulin 3.6 (2.6-4.0) g/dL Albumin/Globulin Ratio 0.7 L (0.9-1.6) Result Diagrams: 11/04/18 12:10 11/04/18 12:10 Problem List Initiated/Reviewed/Updated: Yes Orders Last 24hrs: Active Orders 24 hr Category Date Time Status Patient Status [ADT] Stat ADT 11/04/18 13:58 Active Cardiac Monitoring [RC] . DIRECTED Care 11/04/18 11:29 Active EKG Documentation Completion [RC] STAT Care 11/04/18 11:29 Active Orthostatic Vital Signs [RC] Q4H Care 11/04/18 14:21 Active Oxygen Therapy [RC] PRN Care 11/04/18 14:15 Active RT Aerosol Therapy [RC] ASDIRECTED Care 11/04/18 14:17 Active Up ad Nelda [RC] ASDIRECTED Care 11/04/18 14:15 Active VTE/DVT Education [RC] Q12H Care 11/04/18 14:15 Active Vital Signs [RC] Q4H Care 11/04/18 14:15 Active Regular Diet [DIET] Diet 11/04/18 Dinner Active CORTISOL [REF] Stat Lab 11/04/18 12:10 Received TSH [CHEM] Routine Lab 11/04/18 12:10 Received Acetaminophen [Tylenol] Med 11/04/18 14:15 Active 650 mg PO Q4H PRN Albuterol [Proventil Neb Soln] Med 11/04/18 14:15 Active 2.5 mg NEB Q2H PRN Aspirin [Halfprin] Med 11/05/18 09:00 Active 81 mg PO DAILY DULoxetine [Cymbalta] Med 11/05/18 09:00 Active 30 mg PO DAILY Docusate Sodium [Colace] Med 11/04/18 14:15 Active 100 mg PO BID PRN Enoxaparin [Lovenox] Med 11/04/18 14:15 Active 40 mg SUBCUT Q24H Famotidine [Famotidine] Med 11/04/18 14:30 Active 40 mg PO ASDIRECTED Ondansetron [Zofran ODT] Med 11/04/18 14:15 Active 4 mg PO Q4H PRN Polyethylene Glycol 3350 [MiraLAX] Med 11/04/18 14:15 Active 17 gm PO DAILY PRN Sodium Chloride 0.9% [Normal Saline] 1,000 ml Med 11/04/18 11:45 Active IV STAT Sodium Chloride 0.9% [Saline Flush] Med 11/04/18 11:29 Active 10 ml FLUSH ASDIRECTED PRN Sodium Chloride 0.9% [Saline Flush] Med 11/04/18 11:29 Active 2.5 ml FLUSH ASDIRECTED PRN atorvaSTATin [Lipitor] Med 11/04/18 21:00 Active 20 mg PO BEDTIME Saline Lock Insert [OM.PC] Stat Oth 11/04/18 11:29 Ordered Resuscitation Status Routine Resus Stat 11/04/18 14:15 Ordered Medication Orders Acetaminophen (Tylenol) 650 mg PO Q4H PRN PRN Reason: Pain (Mild 1-3)/fever Albuterol (Proventil Neb Soln) 2.5 mg NEB Q2H PRN PRN Reason: Shortness Of Breath/wheezing Aspirin (Halfprin) 81 mg PO DAILY [facility] Atorvastatin Calcium (Lipitor) 20 mg PO BEDTIME [facility] Docusate Sodium (Colace) 100 mg PO BID PRN PRN Reason: Constipation Duloxetine HCl (Cymbalta) 30 mg PO DAILY [facility] Enoxaparin Sodium (Lovenox) 40 mg SUBCUT Q24H [facility] Sodium Chloride (Normal Saline) 1,000 mls @ 125 mls/hr IV STAT [facility] Last Admin: 11/04/18 12:15 Dose: 125 mls/hr Non-Formulary Medication (Famotidine [Famotidine]) 40 mg PO ASDIRECTED [facility] Ondansetron HCl (Zofran Odt) 4 mg PO Q4H PRN PRN Reason: nausea, able to take PO Polyethylene Glycol (Miralax) 17 gm PO DAILY PRN PRN Reason: Constipation Sodium Chloride (Saline Flush) 10 ml FLUSH ASDIRECTED PRN PRN Reason: Keep Vein Open Sodium Chloride (Saline Flush) 2.5 ml FLUSH ASDIRECTED PRN PRN Reason: Keep Vein Open Assessment/Plan Comment:: A: 1. Hypotensive episode 2. Normocytic anemia 3. PMH Hypertension, adenocarcinoma of left lung P: 1. Hypotensive episode, suspect 2/2 to multiple antihypertensive medications he is on. Will hold his antihypertensive medications overnight. Continue maintenance fluids NS 125 ml/hr. 2. Normocytic anemia- likely 2/2 chemotherapy. Will continue to monitor. No signs of bleeding. Dispo: likely dc tomorrow once BP improves.
[2018-11-04] MEDS: Insulin Aspart 100 Units/ML 3 ML Pen SUBCUT SCH (17:22)
[2018-11-04] MEDS ORDERED: atorvaSTATin 20 MG Tab PO SCH (21:00)
[2018-11-05] MEDS: Sodium Chloride 0.9% 1,000 ML IV SCH (04:08)
[2018-11-05 06:47] LABS: HEMOGLOBIN A1C 7.8 % (4.5-6.2)
[2018-11-05 06:52] LABS: CHLORIDE,CL 108 mmol/L (98-107); SODIUM,NA 139 mmol/L (136-148)
[2018-11-05] MEDS: Insulin Aspart 100 Units/ML 3 ML Pen SUBCUT SCH ×2 (07:48→13:29)
[2018-11-05 07:53] VITALS: BP 117/63
[2018-11-05] MEDS ORDERED: Tamsulosin 0.4 MG Cap.ER PO SCH (09:00)
[2018-11-05] MEDS ORDERED: DULoxetine 30 MG Cap PO SCH (09:00)
[2018-11-05] MEDS ORDERED: Aspirin 81 MG Tab.EC PO SCH (09:00)
--- NOTE | 2018-11-05 11:03 | PCM.DCSUM1 ---
Discharge Summary - Discharge Data Discharge Date: 11/05/18 Discharge Disposition: Home, Self-Care 01 Condition: Fair - Patient Summary/Data Hospital Course: 78 year old male with history of adenocarcinoma of left lung currently on chemotherapy who presented [facility] the ER from [facility] after he was found to be hypotensive with SBP in the 80's. He states that for the past 1 week he has been feeling weak and lightheaded when standing up. He was giving IV fluids and his antihypertensive medications were discontinued. He was monitored overnight with no events on telemetry. His blood pressure improved and he is no longer lightheaded. Today he is requesting discharge. He was instructed to discontinue his antihypertensive medications and to follow up with Dr. Wagoner. - Discharge Plan Home Medications: Home Meds atorvaSTATin [Lipitor] 20 mg PO BEDTIME 10/05/13 [History] Aspirin [[place] Aspirin EC] 81 mg PO DAILY 10/20/16 [History] Famotidine 40 mg PO ASDIRECTED 10/20/16 [History] metFORMIN HCl [Glucophage] 1,000 mg PO BID 11/19/16 [History] Folic Acid 1 mg PO DAILY 08/20/18 [History] Amoxicillin 500 mg PO DAILY 11/04/18 [History] DULoxetine [Cymbalta] 30 mg PO DAILY 11/04/18 [History] Prochlorperazine [Compazine] 5 mg PO ASDIRECTED PRN 11/04/18 [History] Forms: ED Department Discharge Referrals: PCP,None [Primary Care Provider] - - Discharge Summary/Plan Comment DC Time >30 min.: No - Patient Data Vitals - Most Recent: Last Vital Signs Temp 36.2 C 11/05/18 07:00 Pulse 81 11/05/18 07:00 Resp 18 11/05/18 07:00 BP 117/63 11/05/18 07:00 Pulse Ox 94 L 11/05/18 07:00 Orthostatic Blood Pressure [ 88/52 Standing] Orthostatic Blood Pressure [ 91/50 Sitting] Orthostatic Blood Pressure [ 117/63 Supine] Weight - Most Recent: 113.852 kg I&O - Last 24 hours: Intake & Output 11/04/18 11/05/18 11/05/18 22:59 06:59 14:59 Intake Total 2563 120 Output Total 600 Balance 1963 120 Lab Results - Last 24 hrs: Laboratory Results - last 24 hr 11/04/18 11/04/18 11/04/18 Range/Units 12:10 12:10 12:10 WBC 4.27 (4.0-11.0) K/uL RBC 3.21 L (4.50-5.90) M/uL Hgb 9.3 L (13.0-17.0) g/dL Hct 28.7 L (38.0-50.0) % MCV 89.4 (80.0-98.0) fL MCH 29.0 (27.0-32.0) pg MCHC 32.4 (31.0-37.0) g/dL RDW Std Deviation 57.4 (28.0-62.0) fl RDW Coeff of Eleonora 18 H (11.0-15.0) % Plt Count 186 (150-400) K/uL MPV 9.20 (7.40-12.00) fL Neut % (Auto) 3.2 L (48.0-80.0) % Lymph % (Auto) 82.7 H (16.0-40.0) % Childress % (Auto) 11.5 (0.0-15.0) % Eos % (Auto) 2.1 (0.0-7.0) % Baso % (Auto) 0.5 (0.0-1.5) % Neut # (Auto) 0.1 L (1.4-5.7) K/uL Lymph # (Auto) 3.5 H (0.6-2.4) K/uL [place] # (Auto) 0.5 (0.0-0.8) K/uL Eos # (Auto) 0.1 (0.0-0.7) K/uL Baso # (Auto) 0.0 (0.0-0.1) K/uL Nucleated RBC % 0.0 /100WBC Nucleated RBCs # 0 K/uL INR 1.00 Sodium 142 (136-148) mmol/L Potassium 4.3 (3.5-5.1) mmol/L Chloride 107 (98-107) mmol/L Carbon Dioxide 24.3 (21.0-32.0) mmol/L BUN 23 H (7.0-18.0) mg/dL Creatinine 1.2 (0.8-1.3) mg/dL Est Cr Clr Drug Dosing 62.59 mL/min Estimated GFR (MDRD) 58.9 ml/min Glucose 121 H (74-106) mg/dL POC Glucose (60-110) mg/dL Hemoglobin A1c (4.5-6.2) % Calcium 8.7 (8.5-10.1) mg/dL Total Bilirubin 0.3 (0.2-1.0) mg/dL AST 30 (15-37) IU/L ALT 54 (14-63) IU/L Alkaline Phosphatase 155 H (46-116) U/L Troponin I < 0.050 (0.000-0.056) ng/mL Total Protein 6.1 L (6.4-8.2) g/dL Albumin 2.5 L (3.4-5.0) g/dL Globulin 3.6 (2.6-4.0) g/dL Albumin/Globulin Ratio 0.7 L (0.9-1.6) Triglycerides (0-200) mg/dL Cholesterol (50-200) mg/dL LDL Cholesterol, Calc (60-180) mg/dL VLDL Cholesterol (5-55) mg/dL HDL Cholesterol (40-60) mg/dL Cholesterol/HDL Ratio (3.3-6.0) TSH 3rd Generation (0.36-3.74) uIU/mL Cortisol ug/dL 11/04/18 11/04/18 11/04/18 Range/Units 12:10 12:10 17:12 WBC (4.0-11.0) K/uL RBC (4.50-5.90) M/uL Hgb (13.0-17.0) g/dL Hct (38.0-50.0) % MCV (80.0-98.0) fL MCH (27.0-32.0) pg MCHC (31.0-37.0) g/dL RDW Std Deviation (28.0-62.0) fl RDW Coeff of Eleonora (11.0-15.0) % Plt Count (150-400) K/uL MPV (7.40-12.00) fL Neut % (Auto) (48.0-80.0) % Lymph % (Auto) (16.0-40.0) % Childress % (Auto) (0.0-15.0) % Eos % (Auto) (0.0-7.0) % Baso % (Auto) (0.0-1.5) % Neut # (Auto) (1.4-5.7) K/uL Lymph # (Auto) (0.6-2.4) K/uL [place]ress # (Auto) (0.0-0.8) K/uL Eos # (Auto) (0.0-0.7) K/uL Baso # (Auto) (0.0-0.1) K/uL Nucleated RBC % /100WBC Nucleated RBCs # K/uL INR Sodium (136-148) mmol/L Potassium (3.5-5.1) mmol/L Chloride (98-107) mmol/L Carbon Dioxide (21.0-32.0) mmol/L BUN (7.0-18.0) mg/dL Creatinine (0.8-1.3) mg/dL Est Cr Clr Drug Dosing mL/min Estimated GFR (MDRD) ml/min Glucose (74-106) mg/dL POC Glucose 129 H (60-110) mg/dL Hemoglobin A1c (4.5-6.2) % Calcium (8.5-10.1) mg/dL Total Bilirubin (0.2-1.0) mg/dL AST (15-37) IU/L ALT (14-63) IU/L Alkaline Phosphatase (46-116) U/L Troponin I (0.000-0.056) ng/mL Total Protein (6.4-8.2) g/dL Albumin (3.4-5.0) g/dL Globulin (2.6-4.0) g/dL Albumin/Globulin Ratio (0.9-1.6) Triglycerides (0-200) mg/dL Cholesterol (50-200) mg/dL LDL Cholesterol, Calc (60-180) mg/dL VLDL Cholesterol (5-55) mg/dL HDL Cholesterol (40-60) mg/dL Cholesterol/HDL Ratio (3.3-6.0) TSH 3rd Generation 2.49 (0.36-3.74) uIU/mL Cortisol 11.6 ug/dL 11/04/18 11/05/18 11/05/18 Range/Units 21:16 06:19 06:19 WBC (4.0-11.0) K/uL RBC (4.50-5.90) M/uL Hgb (13.0-17.0) g/dL Hct (38.0-50.0) % MCV (80.0-98.0) fL MCH (27.0-32.0) pg MCHC (31.0-37.0) g/dL RDW Std Deviation (28.0-62.0) fl RDW Coeff of Eleonora (11.0-15.0) % Plt Count (150-400) K/uL MPV (7.40-12.00) fL Neut % (Auto) (48.0-80.0) % Lymph % (Auto) (16.0-40.0) % Childress % (Auto) (0.0-15.0) % Eos % (Auto) (0.0-7.0) % Baso % (Auto) (0.0-1.5) % Neut # (Auto) (1.4-5.7) K/uL Lymph # (Auto) (0.6-2.4) K/uL Childress # (Auto) (0.0-0.8) K/uL Eos # (Auto) (0.0-0.7) K/uL Baso # (Auto) (0.0-0.1) K/uL Nucleated RBC % /100WBC Nucleated RBCs # K/uL INR Sodium 139 (136-148) mmol/L Potassium 4.4 (3.5-5.1) mmol/L Chloride 108 H (98-107) mmol/L Carbon Dioxide 21.4 (21.0-32.0) mmol/L BUN 18 (7.0-18.0) mg/dL Creatinine 1.1 (0.8-1.3) mg/dL Est Cr Clr Drug Dosing 68.28 mL/min Estimated GFR (MDRD) > 60.0 ml/min Glucose 143 H (74-106) mg/dL POC Glucose 131 H (60-110) mg/dL Hemoglobin A1c 7.8 H (4.5-6.2) % Calcium 8.1 L (8.5-10.1) mg/dL Total Bilirubin 0.4 (0.2-1.0) mg/dL AST 39 H (15-37) IU/L ALT 68 H (14-63) IU/L Alkaline Phosphatase 154 H (46-116) U/L Troponin I (0.000-0.056) ng/mL Total Protein 5.9 L (6.4-8.2) g/dL Albumin 2.3 L (3.4-5.0) g/dL Globulin 3.6 (2.6-4.0) g/dL Albumin/Globulin Ratio 0.6 L (0.9-1.6) Triglycerides 155 (0-200) mg/dL Cholesterol 91 (50-200) mg/dL LDL Cholesterol, Calc 33 L (60-180) mg/dL VLDL Cholesterol 31 (5-55) mg/dL HDL Cholesterol 27 L (40-60) mg/dL Cholesterol/HDL Ratio 3.4 (3.3-6.0) TSH 3rd Generation (0.36-3.74) uIU/mL Cortisol ug/dL 11/05/18 11/05/18 Range/Units 06:19 06:39 WBC 4.37 (4.0-11.0) K/uL RBC 3.07 L (4.50-5.90) M/uL Hgb 9.0 L (13.0-17.0) g/dL Hct 27.3 L (38.0-50.0) % MCV 88.9 (80.0-98.0) fL MCH 29.3 (27.0-32.0) pg MCHC 33.0 (31.0-37.0) g/dL RDW Std Deviation 55.7 (28.0-62.0) fl RDW Coeff of Eleonora 17 H (11.0-15.0) % Plt Count 175 (150-400) K/uL MPV 9.30 (7.40-12.00) fL Neut % (Auto) 3.3 L (48.0-80.0) % Lymph % (Auto) 82.2 H (16.0-40.0) % Childress % (Auto) 11.7 (0.0-15.0) % Eos % (Auto) 2.3 (0.0-7.0) % Baso % (Auto) 0.5 (0.0-1.5) % Neut # (Auto) 0.2 L (1.4-5.7) K/uL Lymph # (Auto) 3.6 H (0.6-2.4) K/uL Childress # (Auto) 0.5 (0.0-0.8) K/uL Eos # (Auto) 0.1 (0.0-0.7) K/uL Baso # (Auto) 0.0 (0.0-0.1) K/uL Nucleated RBC % 0.0 /100WBC Nucleated RBCs # 0 K/uL INR Sodium (136-148) mmol/L Potassium (3.5-5.1) mmol/L Chloride (98-107) mmol/L Carbon Dioxide (21.0-32.0) mmol/L BUN (7.0-18.0) mg/dL Creatinine (0.8-1.3) mg/dL Est Cr Clr Drug Dosing mL/min Estimated GFR (MDRD) ml/min Glucose (74-106) mg/dL POC Glucose 135 H (60-110) mg/dL Hemoglobin A1c (4.5-6.2) % Calcium (8.5-10.1) mg/dL Total Bilirubin (0.2-1.0) mg/dL AST (15-37) IU/L ALT (14-63) IU/L Alkaline Phosphatase (46-116) U/L Troponin I (0.000-0.056) ng/mL Total Protein (6.4-8.2) g/dL Albumin (3.4-5.0) g/dL Globulin (2.6-4.0) g/dL Albumin/Globulin Ratio (0.9-1.6) Triglycerides (0-200) mg/dL Cholesterol (50-200) mg/dL LDL Cholesterol, Calc (60-180) mg/dL VLDL Cholesterol (5-55) mg/dL HDL Cholesterol (40-60) mg/dL Cholesterol/HDL Ratio (3.3-6.0) TSH 3rd Generation (0.36-3.74) uIU/mL Cortisol ug/dL Med Orders - Current: Current Medications Acetaminophen (Tylenol) 650 mg PO Q4H PRN PRN Reason: Pain (Mild 1-3)/fever Albuterol (Proventil Neb Soln) 2.5 mg NEB Q2H PRN PRN Reason: Shortness Of Breath/wheezing Aspirin (Halfprin) 81 mg PO DAILY [facility] Last Admin: 11/05/18 08:27 Dose: 81 mg Atorvastatin Calcium (Lipitor) 20 mg PO BEDTIME [facility] Last Admin: 11/04/18 20:20 Dose: 20 mg Docusate Sodium (Colace) 100 mg PO BID PRN PRN Reason: Constipation Duloxetine HCl (Cymbalta) 30 mg PO DAILY [facility] Last Admin: 11/05/18 09:27 Dose: 30 mg Enoxaparin Sodium (Lovenox) 40 mg SUBCUT Q24H [facility] Last Admin: 11/04/18 16:08 Dose: 40 mg Sodium Chloride (Normal Saline) 1,000 mls @ 125 mls/hr IV STAT [facility] Last Admin: 11/05/18 04:08 Dose: 125 mls/hr Insulin Aspart (Novolog) 0 unit SUBCUT TIDAC [facility]; Protocol Last Admin: 11/05/18 07:48 Dose: Not Given Non-Formulary Medication (Famotidine [Famotidine]) 40 mg PO ASDIRECTED [facility] Ondansetron HCl (Zofran Odt) 4 mg PO Q4H PRN PRN Reason: nausea, able to take PO Polyethylene Glycol (Miralax) 17 gm PO DAILY PRN PRN Reason: Constipation Sodium Chloride (Saline Flush) 10 ml FLUSH ASDIRECTED PRN PRN Reason: Keep Vein Open Sodium Chloride (Saline Flush) 2.5 ml FLUSH ASDIRECTED PRN PRN Reason: Keep Vein Open Discontinued Medications Tamsulosin HCl (Flomax) 0.4 mg PO DAILY [facility]
== END 2018-11-05 13:05 | disposition home or self-care (01) ==
LOC: MW.ED 11:16 → MW.MS 14:18
PROVIDERS: ADMIT Internal Medicine; ATTEND Internal Medicine
DX: I95.9 Hypotension, unspecified (principal); D64.9 Anemia, unspecified; I10 Essential (primary) hypertension; C34.92 Malignant neoplasm of unspecified part of left bronchus or lung; E11.9 Type 2 diabetes mellitus without complications; E78.00 Pure hypercholesterolemia, unspecified; Z87.891 Personal history of nicotine dependence; Z79.82 Long term (current) use of aspirin; Z79.84 Long term (current) use of oral hypoglycemic drugs; Z79.899 Other long term (current) drug therapy
CPT/HCPCS: 36415; 71045; 80053; 80061; 82533; 82962; 83036; 84443; 84484; 85025; 85610; 93005; 96360; 96361; 99285; A9270; J1642; J1650; J7040; 96372; 99283; G0378

== ENCOUNTER 2018-11-23 15:33 | Observation (INO) | payer MEDICARE, BC ==
[2018-11-23] MEDS: Pantoprazole 40 MG in Sodium Chloride 0.9% 10 ML IVPUSH SCH (16:06)
[2018-11-23] MEDS: Insulin Aspart 100 Units/ML 3 ML Pen SUBCUT SCH (17:19)
--- NOTE | 2018-11-23 17:44 | PCM.HP ---
H&P History of Present Illness - General Date of Service: 11/23/18 - History of Present Illness Initial Comments - Free Text/Narative: 78 year old male with history of adenocarcinoma of left lung currently on immuno therapy who presented to the Cancer center with complaints of generalized weakness, fatigue and shortness of breath. Patient was transfused pRBCs last week. He does get recurrently pleural effusions and has had them drained with thoracentesis before. He reports he had a chest x-ray yesterday and it was not enough to drain. He reports today he had a dark stool. He denies any nausea of vomiting. - Related Data Allergies/Adverse Reactions: Allergies Allergy/AdvReac Type Severity Reaction Status Date / Time No Known Allergies Allergy Verified 11/23/18 18:38 Home Medications: Home Meds RX: atorvaSTATin [Lipitor] 20 mg PO BEDTIME 10/05/13 [History] RX: Aspirin [[place] Aspirin EC] 81 mg PO DAILY 10/20/16 [History] RX: Famotidine 40 mg PO BEDTIME 10/20/16 [History] RX: metFORMIN HCl [Glucophage] 500 mg PO BID 11/19/16 [History] RX: Folic Acid 1 mg PO DAILY 08/20/18 [History] RX: Prochlorperazine [Compazine] 5 mg PO TID PRN 11/04/18 [History] Multivitamin [Multivitamins] 1 each PO DAILY 11/23/18 [History] RX: Metoprolol Succinate 100 mg PO Q24H 11/23/18 [History] guaiFENesin [Mucinex] 600 mg PO Q12H 11/23/18 [History] guaiFENesin [Robitussin] 100 mg PO Q4H 11/23/18 [History] Past Medical History HEENT History: Reports: Other (See Below) Other HEENT History: wears glasses, upper partial Cardiovascular History: Reports: Heart Murmur, High Cholesterol, Hypertension Respiratory History: Reports: Other (See Below) Other Respiratory History: smoked 2 to 3 packs of cigarettes for approx 35 yrs, quit smoking in 1996, 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 functional port a cath Gastrointestinal History: Reports: Colon Polyp, Diverticulosis, GERD Genitourinary History: Reports: BPH, Renal Calculus, UTI, Recurrent Other Genitourinary History: hx transitional cell bladder cancer Musculoskeletal History: Reports: Fracture Other Musculoskeletal History: left leg Neurological History: Reports: Neuropathy, Peripheral Psychiatric History: Reports: None Endocrine/Metabolic History: Reports: Diabetes, Type II, Obesity/BMI 30+ Hematologic History: Reports: Blood Transfusion(s) Immunologic History: Reports: None Oncologic (Cancer) History: Reports: Bladder, Lung Dermatologic History: Reports: None - Infectious Disease History Infectious Disease History: Reports: None - Past Surgical History Head Surgeries/Procedures: Reports: None HEENT Surgical History: Reports: Cataract Surgery Cardiovascular Surgical History: Reports: None Respiratory Surgical History: Reports: Other (See Below) Other Respiratory Surgeries/Procedures: lung bx x2 GI Surgical History: Reports: Appendectomy, Colonoscopy, EGD Male Surgical History: Reports: Kidney Stone Extraction, TURBT-Transurethral Resection of Bladder Tumor Endocrine Surgical History: Reports: None Neurological Surgical History: Reports: None Musculoskeletal Surgical History: Reports: ORIF Other Musculoskeletal Surgeries/Procedures:: left leg with hardware Oncologic Surgical History: Reports: Other (See Below) Other Oncologic Surgeries/Procedures: TURBT, lung bx x2, left christopher cath placement Dermatological Surgical History: Reports: None Social & Family History - Family History Family Medical History: Noncontributory Oncologic: Reports: Lung Other Oncologic Family History: Mother had lung cancer - Tobacco Use Smoking Status *Q: Former Smoker Years of Tobacco use: 35 Used Tobacco, but Quit: Yes Month/Year Tobacco Last Used: 25 years ago Second Hand Smoke Exposure: No - Caffeine Use Caffeine Use: Reports: Coffee Caffeine Use Comment: 2-4 cups of coffee a day - Recreational Drug Use Recreational Drug Use: No H&P Review of Systems - Review of Systems: Review Of Systems: ROS reveals no pertinent complaints other than HPI. Exam - Exam Exam: See Below - Vital Signs Vital Signs: Last Vital Signs Temp 37.4 C 11/23/18 16:55 Pulse 112 H 11/23/18 16:55 Resp 24 H 11/23/18 16:55 BP 106/69 11/23/18 16:55 Pulse Ox 99 11/23/18 16:55 Weight: 115.122 kg - Exam General: Alert, Oriented HEENT: Mucosa Moist & [place] Neck: Supple Lungs: Clear to Auscultation, Normal Respiratory Effort Cardiovascular: Regular Rate, Regular Rhythm GI/Abdominal Exam: Soft, Non-Tender Extremities: Non-Tender, No Pedal Edema Skin: Warm, Dry, Intact Neurological: Cranial Nerves Intact - Patient Data Lab Results Last 24 hrs: Laboratory Results - last 24 hr 11/23/18 11/23/18 11/23/18 Range/Units 12:25 12:25 17:08 POC Glucose 174 H (60-110) mg/dL Blood Type A POSITIVE A POSITIVE Antibody Screen NEGATIVE NEGATIVE Crossmatch See Detail See Detail Result Diagrams: 11/24/18 05:43 11/24/18 05:43 Problem List Initiated/Reviewed/Updated: Yes Orders Last 24hrs: Active Orders 24 hr Category Date Time Status Antiembolic Devices [RC] PER UNIT ROUTINE Care 11/23/18 17:38 Active Blood Glucose Check, Bedside [RC] TIDAC Care 11/23/18 17:00 Active Oxygen Therapy [RC] PRN Care 11/23/18 17:37 Active Up ad Nelda [RC] ASDIRECTED Care 11/23/18 17:37 Active VTE/DVT Education [RC] PER UNIT ROUTINE Care 11/23/18 17:37 Active Vital Signs [RC] Q4H Care 11/23/18 17:37 Active Clear Liquid Diet [DIET] Diet 11/24/18 Breakfast Active BASIC METABOLIC PANEL,BMP [CHEM] AM Lab 11/24/18 05:11 Ordered CBC WITH AUTO DIFF [HEME] AM Lab 11/24/18 05:11 Ordered CBC WITH AUTO DIFF [HEME] Routine Lab 11/23/18 Ordered RED BLOOD CELLS LP [BBK] Routine Lab 11/23/18 12:25 Results TYPE AND SCREEN [BBK] Routine Lab 11/23/18 12:25 Results Insulin Aspart [NovoLOG] Med 11/23/18 17:00 Active See Protocol SUBCUT TIDAC Pantoprazole [ProTONIX IV] 40 mg Med 11/23/18 16:00 Active Sodium Chloride 0.9% [Normal Saline] 10 ml IVPUSH Q12H Sequential Compression Device [OM.PC] Per Unit Routine Oth 11/23/18 17:38 Ordered Transfuse Red Blood Cells [COMM] Routine Oth 11/23/18 15:52 Ordered Resuscitation Status Routine Resus Stat 11/23/18 17:37 Ordered Medication Orders Pantoprazole Sodium 40 mg/ (Sodium Chloride) 10 mls @ 300 mls/hr IVPUSH Q12H [facility] Last Admin: 11/23/18 16:06 Dose: 300 mls/hr Insulin Aspart (Novolog) 0 unit SUBCUT TIDAC [facility]; Protocol Last Admin: 11/23/18 17:19 Dose: 2 units Assessment/Plan Comment:: 78 yo male admitted for symptomatic acute blood loss anemia from suspect GI bleed. We will transfuse 2 units of pRBCs and start Protonix. We will check chest s-ray tomorrow morning. Dr. Hurst was consulted regarding possible endoscopy.
--- NOTE | 2018-11-23 19:41 | PCM.SN ---
- Free Text/Narrative Note: black tarry stool, lack of energy, h/h 6.6, gib protocol, 2 large bore iv access , strict i/o, wt pt now and qam, transfuse to h/h above 10. h/h q8 blood draw, will follow with you; if h/h stable, may benefit from egd day after tomorrow
--- NOTE | 2018-11-24 00:27 | CONS ---
DATE OF CONSULTATION: 11/23/2018 DATE OF : 1940 PRIMARY CARE PHYSICIAN: None PCP Consult was called. The patient was seen shortly after. CONCERNING QUESTION: Anemic. HISTORY OF PRESENT ILLNESS: The patient is a 78-year-old gentleman, obese, and carries a diagnosis of stage IV invasive lung cancer, metastatic to the bone, since 6 months ago, and the patient was seen by the oncologist, as the patient is doing chemo, and complained about generalized weakness and lack of energy and also shortness of breath. Workup included blood draw and noted to have hemoglobin down to 6.6. The patient's previous lab draw 1 week ago was 7.9 and another week ago was 9.6, and the patient also remarked that this morning, his bowel movement was black. He denied prior episode, denied syncope, and denied chest pain. ALLERGIES: Please refer to nursing for details. MEDICATION: Please refer to nursing for details. PAST MEDICAL HISTORY: Significant for lung cancer with metastatic disease, hypertension, and diabetic. He denied [place] and CVA. PAST SURGICAL HISTORY: Colonoscopy and EGD. PHYSICAL EXAMINATION: GENERAL: A very pleasant gentleman, smiles to the doctor, very polite, but does complain very tired. VITAL SIGNS: Temperature is 98.5, pulse is 113, blood pressure is 120/73, respiratory rate is 24, and O2 saturation is 98. HEENT: Normocephalic and atraumatic. Sclerae are anicteric. LUNGS: Clear to auscultation. Decreased breath sounds on the left side. HEART: Regular rate and rhythm. ABDOMEN: Distended with a large umbilical hernia. LABORATORY DATA: Upon consultation, hemoglobin is 6.6, white count is 12.9, hematocrit is 21.9, and platelets are 347. Sodium is 143, potassium is 4.1, and glucose is 165. IMPRESSION: Black tarry stool, positive occult blood from guaiac stool, and feeling tired. Probably, the patient may have some upper gastrointestinal bleeding. We will agree to proceed with gastrointestinal bleeding protocol; do large-bore IV access; strict in and out; avoid any anticoagulating treatment; transfuse hemoglobin higher than 10; get H and H q.8, and see whether the patient has active bleeding. We will follow the patient with you. STEF / SANTA /[id number]
[2018-11-24] MEDS: Pantoprazole 40 MG in Sodium Chloride 0.9% 10 ML IVPUSH SCH ×2 (03:53→17:47)
--- NOTE | 2018-11-24 06:02 | CR ---
INDICATION: Shortness of breath TECHNIQUE: Chest 1 views COMPARISON: Chest x-ray 11/04/2018 FINDINGS: Cardiovascular and mediastinum: Normal heart size with left-sided Port-A-Cath with tip at the distal superior vena cava level. Lungs and pleural spaces: Large opacity within the left hemithorax with a lentiform shape extending from roughly the left 2nd rib to the inferior margin of the left hemithorax. Small amount of aerated lung visible medially at the mid hemithorax and left lung apex. Right lung expanded without evidence of pleural effusion or pneumothorax. Slight basilar discoid atelectasis. Bones and soft tissues: No significant findings. IMPRESSION: Lentiform opacity involving much of the left hemithorax suggesting a significantly enlarged loculated left pleural effusion compared to the study of 1 month prior. Dictated by Arley Groves MD @ Nov 24 2018 5:55AM Signed by Dr. Arley Groves @ Nov 24 2018 6:00AM
[2018-11-24 06:20] LABS: CHLORIDE,CL 108 mmol/L (98-107); SODIUM,NA 143 mmol/L (136-148)
[2018-11-24] MEDS: Insulin Aspart 100 Units/ML 3 ML Pen SUBCUT SCH ×3 (09:01→17:30)
--- NOTE | 2018-11-24 09:27 | PCM.SURGPN ---
- General Info Date of Service: 11/24/18 Functional Status: Reports: Pain Controlled - Review of Systems Genitourinary: Reports: No Symptoms (no bowel movement, hungry, denied abd pain , no bloody emisis or black tarry stool, h/h increased from 6.6 to 7.8 after 2 RBC) - Patient Data Vitals - Most Recent: Last Vital Signs Temp 97.5 F 11/24/18 08:36 Pulse 94 11/24/18 08:36 Resp 16 11/24/18 08:36 BP 95/53 L 11/24/18 08:36 Pulse Ox 95 11/24/18 08:36 Weight - Most Recent: 253 lb 12.8 oz I&O - Last 24 Hours: Intake & Output 11/23/18 11/24/18 11/24/18 22:59 06:59 14:59 Intake Total 700 200 Output Total 0 590 Balance 700 -390 Lab Results Last 24 Hrs: Laboratory Results - last 24 hr 11/23/18 11/23/18 11/23/18 Range/Units 12:25 12:25 17:08 WBC (4.0-11.0) K/uL RBC (4.50-5.90) M/uL Hgb (13.0-17.0) g/dL Hct (38.0-50.0) % MCV (80.0-98.0) fL MCH (27.0-32.0) pg MCHC (31.0-37.0) g/dL RDW Std Deviation (28.0-62.0) fl RDW Coeff of Eleonora (11.0-15.0) % Plt Count (150-400) K/uL MPV (7.40-12.00) fL Neut % (Auto) (48.0-80.0) % Lymph % (Auto) (16.0-40.0) % [place] % (Auto) (0.0-15.0) % Eos % (Auto) (0.0-7.0) % Baso % (Auto) (0.0-1.5) % Neut # (Auto) (1.4-5.7) K/uL Lymph # (Auto) (0.6-2.4) K/uL [place] # (Auto) (0.0-0.8) K/uL Eos # (Auto) (0.0-0.7) K/uL Baso # (Auto) (0.0-0.1) K/uL Nucleated RBC % /100WBC Nucleated RBCs # K/uL Sodium (136-148) mmol/L Potassium (3.5-5.1) mmol/L Chloride (98-107) mmol/L Carbon Dioxide (21.0-32.0) mmol/L BUN (7.0-18.0) mg/dL Creatinine (0.8-1.3) mg/dL Est Cr Clr Drug Dosing mL/min Estimated GFR (MDRD) ml/min Glucose (74-106) mg/dL POC Glucose 174 H (60-110) mg/dL Calcium (8.5-10.1) mg/dL Blood Type A POSITIVE A POSITIVE Antibody Screen NEGATIVE NEGATIVE Crossmatch See Detail See Detail 11/23/18 11/24/18 11/24/18 Range/Units 23:55 05:43 05:43 WBC 11.52 H 11.40 H (4.0-11.0) K/uL RBC 2.63 L 2.84 L (4.50-5.90) M/uL Hgb 7.4 L 7.8 L (13.0-17.0) g/dL Hct 23.6 L 25.6 L (38.0-50.0) % MCV 89.7 90.1 (80.0-98.0) fL MCH 28.1 27.5 (27.0-32.0) pg MCHC 31.4 30.5 L (31.0-37.0) g/dL RDW Std Deviation 54.2 55.8 (28.0-62.0) fl RDW Coeff of Eleonora 17 H 17 H (11.0-15.0) % Plt Count 260 276 (150-400) K/uL MPV 8.90 9.10 (7.40-12.00) fL Neut % (Auto) 42.2 L 46.2 L (48.0-80.0) % Lymph % (Auto) 43.4 H 39.0 (16.0-40.0) % [place] % (Auto) 11.0 11.1 (0.0-15.0) % Eos % (Auto) 3.1 3.4 (0.0-7.0) % Baso % (Auto) 0.3 0.3 (0.0-1.5) % Neut # (Auto) 4.9 5.3 (1.4-5.7) K/uL Lymph # (Auto) 5.0 H 4.5 H (0.6-2.4) K/uL [place] # (Auto) 1.3 H 1.3 H (0.0-0.8) K/uL Eos # (Auto) 0.4 0.4 (0.0-0.7) K/uL Baso # (Auto) 0.0 0.0 (0.0-0.1) K/uL Nucleated RBC % 0.7 0.4 /100WBC Nucleated RBCs # 0 0 K/uL Sodium 143 (136-148) mmol/L Potassium 4.5 (3.5-5.1) mmol/L Chloride 108 H (98-107) mmol/L Carbon Dioxide 23.7 (21.0-32.0) mmol/L BUN 18 (7.0-18.0) mg/dL Creatinine 1.1 (0.8-1.3) mg/dL Est Cr Clr Drug Dosing 68.28 mL/min Estimated GFR (MDRD) > 60.0 ml/min Glucose 149 H (74-106) mg/dL POC Glucose (60-110) mg/dL Calcium 8.4 L (8.5-10.1) mg/dL Blood Type Antibody Screen Crossmatch 11/24/18 Range/Units 06:19 WBC (4.0-11.0) K/uL RBC (4.50-5.90) M/uL Hgb (13.0-17.0) g/dL Hct (38.0-50.0) % MCV (80.0-98.0) fL MCH (27.0-32.0) pg MCHC (31.0-37.0) g/dL RDW Std Deviation (28.0-62.0) fl RDW Coeff of Eleonora (11.0-15.0) % Plt Count (150-400) K/uL MPV (7.40-12.00) fL Neut % (Auto) (48.0-80.0) % Lymph % (Auto) (16.0-40.0) % [place] % (Auto) (0.0-15.0) % Eos % (Auto) (0.0-7.0) % Baso % (Auto) (0.0-1.5) % Neut # (Auto) (1.4-5.7) K/uL Lymph # (Auto) (0.6-2.4) K/uL [place] # (Auto) (0.0-0.8) K/uL Eos # (Auto) (0.0-0.7) K/uL Baso # (Auto) (0.0-0.1) K/uL Nucleated RBC % /100WBC Nucleated RBCs # K/uL Sodium (136-148) mmol/L Potassium (3.5-5.1) mmol/L Chloride (98-107) mmol/L Carbon Dioxide (21.0-32.0) mmol/L BUN (7.0-18.0) mg/dL Creatinine (0.8-1.3) mg/dL Est Cr Clr Drug Dosing mL/min Estimated GFR (MDRD) ml/min Glucose (74-106) mg/dL POC Glucose 169 H (60-110) mg/dL Calcium (8.5-10.1) mg/dL Blood Type Antibody Screen Crossmatch Fam Results Last 24 Hrs: Microbiology 11/23/18 17:29 Stool Occult Blood (FAM) - Final Stool / Feces POSITIVE OCCULT BLOOD REFERENCE RANGE: NEGATIVE Med Orders - Current: Current Medications Pantoprazole Sodium 40 mg/ (Sodium Chloride) 10 mls @ 300 mls/hr IVPUSH Q12H [facility] Last Admin: 11/24/18 03:53 Dose: 300 mls/hr Insulin Aspart (Novolog) [address] [facility]; Protocol Last Admin: 11/24/18 09:01 Dose: 2 units - Exam GI/Abdominal Exam: Soft, Non-Tender - Problem List Review Problem List Initiated/Reviewed/Updated: Yes - My Orders Last 24 Hours: Active Orders 24 hr Category Date Time Status Admission Status [Patient Status] [ADT] Routine ADT 11/23/18 17:48 Active Antiembolic Devices [RC] PER UNIT ROUTINE Care 11/23/18 17:38 Active Blood Glucose Check, Bedside [RC] TIDAC Care 11/23/18 17:00 Active Oxygen Therapy [RC] PRN Care 11/23/18 17:37 Active Up ad Nelda [RC] ASDIRECTED Care 11/23/18 17:37 Active VTE/DVT Education [RC] PER UNIT ROUTINE Care 11/23/18 17:37 Active Vital Signs [RC] Q4H Care 11/23/18 17:37 Active Clear Liquid Diet [DIET] Diet 11/24/18 Breakfast Active HEMOGLOBIN/HEMATOCRIT,HH [HEME] Routine Lab 11/24/18 16:00 Ordered Insulin Aspart [NovoLOG] Med 11/23/18 17:00 Active See Protocol SUBCUT TIDAC Pantoprazole [ProTONIX IV] 40 mg Med 11/23/18 16:00 Active Sodium Chloride 0.9% [Normal Saline] 10 ml IVPUSH Q12H Sequential Compression Device [OM.PC] Per Unit Routine Oth 11/23/18 17:38 Ordered Transfuse Red Blood Cells [COMM] Routine Oth 11/23/18 15:52 Ordered Resuscitation Status Routine Resus Stat 11/23/18 17:37 Ordered Medication Orders Pantoprazole Sodium 40 mg/ (Sodium Chloride) 10 mls @ 300 mls/hr IVPUSH Q12H [facility] Last Admin: 11/24/18 03:53 Dose: 300 mls/hr Infusion: 11/23/18 16:08 Dose: 300 mls/hr Admin: 11/23/18 16:06 Dose: 300 mls/hr Insulin Aspart (Novolog) 0 unit SUBCUT TIDAC [facility]; Protocol Last Admin: 11/24/18 09:01 Dose: 2 units Admin: 11/23/18 17:19 Dose: 2 units - Assessment Assessment (Free Text/Narrative):: doing well clinically; tentatively planned for egd tomorrow; pls transfuse to h/ h > 10; pt told about egd, and concur - Plan Plan (Free Text/Narrative):: doing well clinically; tentatively planned for egd tomorrow; pls transfuse to h/ h > 10; pt told about egd, and concur
[2018-11-24] MEDS ORDERED: Lactated Ringers 1,000 ML IV SCH (09:30)
--- NOTE | 2018-11-24 10:35 | PCM.PN ---
- General Info Date of Service: 11/24/18 - Review of Systems Systems Review Comment:: reports shortness of breath. - Patient Data Vitals - Most Recent: Last Vital Signs Temp 36.4 C 11/24/18 08:36 Pulse 94 11/24/18 08:36 Resp 16 11/24/18 08:36 BP 95/53 L 11/24/18 08:36 Pulse Ox 95 11/24/18 08:36 Weight - Most Recent: 115.122 kg I&O - Last 24 Hours: Intake & Output 11/23/18 11/24/18 11/24/18 22:59 06:59 14:59 Intake Total 700 200 Output Total 0 590 Balance 700 -390 Lab Results Last 24 Hours: Laboratory Results - last 24 hr 11/23/18 11/23/18 11/23/18 Range/Units 12:25 12:25 17:08 WBC (4.0-11.0) K/uL RBC (4.50-5.90) M/uL Hgb (13.0-17.0) g/dL Hct (38.0-50.0) % MCV (80.0-98.0) fL MCH (27.0-32.0) pg MCHC (31.0-37.0) g/dL RDW Std Deviation (28.0-62.0) fl RDW Coeff of Eleonora (11.0-15.0) % Plt Count (150-400) K/uL MPV (7.40-12.00) fL Neut % (Auto) (48.0-80.0) % Lymph % (Auto) (16.0-40.0) % Christian % (Auto) (0.0-15.0) % Eos % (Auto) (0.0-7.0) % Baso % (Auto) (0.0-1.5) % Neut # (Auto) (1.4-5.7) K/uL Lymph # (Auto) (0.6-2.4) K/uL Christian # (Auto) (0.0-0.8) K/uL Eos # (Auto) (0.0-0.7) K/uL Baso # (Auto) (0.0-0.1) K/uL Nucleated RBC % /100WBC Nucleated RBCs # K/uL Sodium (136-148) mmol/L Potassium (3.5-5.1) mmol/L Chloride (98-107) mmol/L Carbon Dioxide (21.0-32.0) mmol/L BUN (7.0-18.0) mg/dL Creatinine (0.8-1.3) mg/dL Est Cr Clr Drug Dosing mL/min Estimated GFR (MDRD) ml/min Glucose (74-106) mg/dL POC Glucose 174 H (60-110) mg/dL Calcium (8.5-10.1) mg/dL Blood Type A POSITIVE A POSITIVE Antibody Screen NEGATIVE NEGATIVE Crossmatch See Detail See Detail 11/23/18 11/24/18 11/24/18 Range/Units 23:55 05:43 05:43 WBC 11.52 H 11.40 H (4.0-11.0) K/uL RBC 2.63 L 2.84 L (4.50-5.90) M/uL Hgb 7.4 L 7.8 L (13.0-17.0) g/dL Hct 23.6 L 25.6 L (38.0-50.0) % MCV 89.7 90.1 (80.0-98.0) fL MCH 28.1 27.5 (27.0-32.0) pg MCHC 31.4 30.5 L (31.0-37.0) g/dL RDW Std Deviation 54.2 55.8 (28.0-62.0) fl RDW Coeff of Eleonora 17 H 17 H (11.0-15.0) % Plt Count 260 276 (150-400) K/uL MPV 8.90 9.10 (7.40-12.00) fL Neut % (Auto) 42.2 L 46.2 L (48.0-80.0) % Lymph % (Auto) 43.4 H 39.0 (16.0-40.0) % Christian % (Auto) 11.0 11.1 (0.0-15.0) % Eos % (Auto) 3.1 3.4 (0.0-7.0) % Baso % (Auto) 0.3 0.3 (0.0-1.5) % Neut # (Auto) 4.9 5.3 (1.4-5.7) K/uL Lymph # (Auto) 5.0 H 4.5 H (0.6-2.4) K/uL Christian # (Auto) 1.3 H 1.3 H (0.0-0.8) K/uL Eos # (Auto) 0.4 0.4 (0.0-0.7) K/uL Baso # (Auto) 0.0 0.0 (0.0-0.1) K/uL Nucleated RBC % 0.7 0.4 /100WBC Nucleated RBCs # 0 0 K/uL Sodium 143 (136-148) mmol/L Potassium 4.5 (3.5-5.1) mmol/L Chloride 108 H (98-107) mmol/L Carbon Dioxide 23.7 (21.0-32.0) mmol/L BUN 18 (7.0-18.0) mg/dL Creatinine 1.1 (0.8-1.3) mg/dL Est Cr Clr Drug Dosing 68.28 mL/min Estimated GFR (MDRD) > 60.0 ml/min Glucose 149 H (74-106) mg/dL POC Glucose (60-110) mg/dL Calcium 8.4 L (8.5-10.1) mg/dL Blood Type Antibody Screen Crossmatch 11/24/18 Range/Units 06:19 WBC (4.0-11.0) K/uL RBC (4.50-5.90) M/uL Hgb (13.0-17.0) g/dL Hct (38.0-50.0) % MCV (80.0-98.0) fL MCH (27.0-32.0) pg MCHC (31.0-37.0) g/dL RDW Std Deviation (28.0-62.0) fl RDW Coeff of Eleonora (11.0-15.0) % Plt Count (150-400) K/uL MPV (7.40-12.00) fL Neut % (Auto) (48.0-80.0) % Lymph % (Auto) (16.0-40.0) % Christian % (Auto) (0.0-15.0) % Eos % (Auto) (0.0-7.0) % Baso % (Auto) (0.0-1.5) % Neut # (Auto) (1.4-5.7) K/uL Lymph # (Auto) (0.6-2.4) K/uL Christian # (Auto) (0.0-0.8) K/uL Eos # (Auto) (0.0-0.7) K/uL Baso # (Auto) (0.0-0.1) K/uL Nucleated RBC % /100WBC Nucleated RBCs # K/uL Sodium (136-148) mmol/L Potassium (3.5-5.1) mmol/L Chloride (98-107) mmol/L Carbon Dioxide (21.0-32.0) mmol/L BUN (7.0-18.0) mg/dL Creatinine (0.8-1.3) mg/dL Est Cr Clr Drug Dosing mL/min Estimated GFR (MDRD) ml/min Glucose (74-106) mg/dL POC Glucose 169 H (60-110) mg/dL Calcium (8.5-10.1) mg/dL Blood Type Antibody Screen Crossmatch Fam Results Last 24 Hours: Microbiology 11/23/18 17:29 Stool Occult Blood (FAM) - Final Stool / Feces POSITIVE OCCULT BLOOD REFERENCE RANGE: NEGATIVE Med Orders - Current: Current Medications Pantoprazole Sodium 40 mg/ (Sodium Chloride) 10 mls @ 300 mls/hr IVPUSH Q12H [facility] Last Admin: 11/24/18 03:53 Dose: 300 mls/hr Lactated Ringer's (Ringers, Lactated) 1,000 mls @ 100 mls/hr IV ASDIRECTED [facility] Insulin Aspart (Novolog) 0 unit SUBCUT TIDAC [facility]; Protocol Last Admin: 11/24/18 09:01 Dose: 2 units - Exam General: Alert, Oriented Lungs: Normal Respiratory Effort, Decreased Breath Sounds Cardiovascular: Regular Rate, Regular Rhythm GI/Abdominal Exam: Normal Bowel Sounds, Soft Extremities: Non-Tender, No Pedal Edema Skin: Warm, Dry, Intact - Problem List Review Problem List Initiated/Reviewed/Updated: Yes - My Orders Last 24 Hours: My Active Orders 11/23/18 12:25 RED BLOOD CELLS LP [BBK] Routine TYPE AND SCREEN [BBK] Routine 11/23/18 16:00 Pantoprazole [ProTONIX IV] 40 mg Sodium Chloride 0.9% [Normal Saline] 10 ml IVPUSH Q12H 11/23/18 17:00 Blood Glucose Check, Bedside [RC] TIDAC Insulin Aspart [NovoLOG] See Protocol SUBCUT TIDAC 11/23/18 17:37 Oxygen Therapy [RC] PRN Up ad Nelda [RC] ASDIRECTED VTE/DVT Education [RC] PER UNIT ROUTINE Vital Signs [RC] Q4H Resuscitation Status Routine 11/23/18 17:38 Antiembolic Devices [RC] PER UNIT ROUTINE Sequential Compression Device [OM.PC] Per Unit Routine 11/23/18 17:48 Admission Status [Patient Status] [ADT] Routine 11/24/18 09:35 Transfuse Red Blood Cells [COMM] Routine 11/24/18 16:00 CBC WITH AUTO DIFF [HEME] Routine 11/24/18 Breakfast Clear Liquid Diet [DIET] 11/25/18 05:11 BASIC METABOLIC PANEL,BMP [CHEM] AM CBC WITH AUTO DIFF [HEME] AM 11/26/18 05:11 BASIC METABOLIC PANEL,BMP [CHEM] AM CBC WITH AUTO DIFF [HEME] AM - Plan Plan:: 78 yo male admitted for symptomatic acute blood loss anemia from suspect GI bleed. s/p 2 units of pRBCs and will transfuse another 2 units with goal Hgb of 10. We will continue Protonix. Dr. Hurst plan on EGD tomorrow.
[2018-11-24] MEDS ORDERED: guaiFENesin 600 MG Tab.ER PO PRN (16:55)
[2018-11-25] MEDS: Pantoprazole 40 MG in Sodium Chloride 0.9% 10 ML IVPUSH SCH (05:39)
[2018-11-25 06:55] LABS: CHLORIDE,CL 108 mmol/L (98-107); SODIUM,NA 141 mmol/L (136-148)
--- NOTE | 2018-11-25 06:59 | CR ---
HISTORY: Increasing shortness of breath. COMPARISON: 11/24/2018. FINDINGS: Left subclavian christopher catheter with tip in the proximal SVC. Opacification of the majority of the left hemithorax. This may represent effusion, consolidation and/or mass. This could be further evaluated with CT. The appearance however is stable from most recent study. The right lung shows mild increased interstitial prominence, may represent pulmonary edema. Heart size appears within normal. Dictated by Arminda Walter MD @ Nov 25 2018 6:57AM Signed by Dr. Arminda Walter @ Nov 25 2018 6:57AM
[2018-11-25] MEDS: Insulin Aspart 100 Units/ML 3 ML Pen SUBCUT SCH ×2 (07:52→12:40)
[2018-11-25] MEDS ORDERED: Furosemide 40 MG/4 ML VIAL IVPUSH ONE (10:50)
--- NOTE | 2018-11-25 11:06 | PCM.DCSUM1 ---
Discharge Summary - Discharge Data Discharge Date: 11/25/18 Discharge Disposition: DC/Tfer to Acute Hospital 02 Condition: Good - Patient Summary/Data Consults: Consultations 11/24/18 19:39 Consult to Physician [CONS] Routine Hospital Course: 78 year old male with history of adenocarcinoma of left lung currently on immuno therapy who was admitted for GI bleed. He presented to the Cancer center with complaints of generalized weakness, fatigue, shortness of breath. He admits to having a one day history of dark stools. He was found to have a hgb of 6.8 He does get recurrently pleural effusions and has had them drained with thoracentesis before, However he now has an effusion that is loculated and radiology is unable to find a fluid collection large enough to drain by ultrasound guidance. He was placed on protonix and transfused a total of six units of pRBC. His Hgb is 10.4 this morning. He is still having dark stools. Our General surgeon was consulted regarding possible endoscopy. EGD was scheduled but was canceled due to his shortness of breath. Today his is expressing frustration with lack of progress with his shortness of breath and continued GI bleed. Patient would benefit for transfer for higher level of care for consultation of gastroenterology for GI bleed and pulmonology/ cardiothoracic surgeon for loculated pleural effusion. I called [facility] in [place] and Dr. Nelson has accepted the patient. - Discharge Plan Home Medications: Home Meds atorvaSTATin [Lipitor] 20 mg PO BEDTIME 10/05/13 [History] Aspirin [[place] Aspirin EC] 81 mg PO DAILY 10/20/16 [History] Famotidine 40 mg PO BEDTIME 10/20/16 [History] metFORMIN HCl [Glucophage] 500 mg PO BID 11/19/16 [History] Folic Acid 1 mg PO DAILY 08/20/18 [History] Prochlorperazine [Compazine] 5 mg PO TID PRN 11/04/18 [History] Metoprolol Succinate 100 mg PO Q24H 11/23/18 [History] Multivitamin [Multivitamins] 1 each PO DAILY 11/23/18 [History] guaiFENesin [Mucinex] 600 mg PO Q12H 11/23/18 [History] guaiFENesin [Robitussin] 100 mg PO Q4H 11/23/18 [History] Patient Handouts: Blood Transfusion, Adult, [id number], Gastrointestinal Bleeding, [id number] Referrals: Rigoberto Serna MD [Physician] - 12/02/18 11:00 am - Discharge Summary/Plan Comment DC Time >30 min.: No - Patient Data Vitals - Most Recent: Last Vital Signs Temp 36.3 C 11/25/18 07:39 Pulse 93 11/25/18 07:39 Resp 19 11/25/18 07:39 BP 136/60 11/25/18 07:39 Pulse Ox 96 11/25/18 07:39 Weight - Most Recent: 116.29 kg I&O - Last 24 hours: Intake & Output 11/24/18 11/25/18 11/25/18 22:59 06:59 14:59 Intake Total 2028 1148 Output Total 710 Balance 2028 438 Lab Results - Last 24 hrs: Laboratory Results - last 24 hr 11/23/18 11/23/18 11/24/18 Range/Units 12:25 12:25 11:34 WBC (4.0-11.0) K/uL RBC (4.50-5.90) M/uL Hgb (13.0-17.0) g/dL Hct (38.0-50.0) % MCV (80.0-98.0) fL MCH (27.0-32.0) pg MCHC (31.0-37.0) g/dL RDW Std Deviation (28.0-62.0) fl RDW Coeff of Eleonora (11.0-15.0) % Plt Count (150-400) K/uL MPV (7.40-12.00) fL Neut % (Auto) (48.0-80.0) % Lymph % (Auto) (16.0-40.0) % Jerome % (Auto) (0.0-15.0) % Eos % (Auto) (0.0-7.0) % Baso % (Auto) (0.0-1.5) % Neut # (Auto) (1.4-5.7) K/uL Lymph # (Auto) (0.6-2.4) K/uL Jerome # (Auto) (0.0-0.8) K/uL Eos # (Auto) (0.0-0.7) K/uL Baso # (Auto) (0.0-0.1) K/uL Nucleated RBC % /100WBC Nucleated RBCs # K/uL Sodium (136-148) mmol/L Potassium (3.5-5.1) mmol/L Chloride (98-107) mmol/L Carbon Dioxide (21.0-32.0) mmol/L BUN (7.0-18.0) mg/dL Creatinine (0.8-1.3) mg/dL Est Cr Clr Drug Dosing mL/min Estimated GFR (MDRD) ml/min Glucose (74-106) mg/dL POC Glucose 124 H (60-110) mg/dL Calcium (8.5-10.1) mg/dL Blood Type A POSITIVE Antibody Screen NEGATIVE Crossmatch See Detail See Detail 11/24/18 11/24/18 11/25/18 Range/Units 17:28 19:40 06:30 WBC 12.28 H 9.85 (4.0-11.0) K/uL RBC 3.12 L 3.66 L (4.50-5.90) M/uL Hgb 8.8 L 10.4 L (13.0-17.0) g/dL Hct 28.0 L 32.5 L (38.0-50.0) % MCV 89.7 88.8 (80.0-98.0) fL MCH 28.2 28.4 (27.0-32.0) pg MCHC 31.4 32.0 (31.0-37.0) g/dL RDW Std Deviation 51.8 50.8 (28.0-62.0) fl RDW Coeff of Eleonora 16 H 16 H (11.0-15.0) % Plt Count 244 203 (150-400) K/uL MPV 9.30 9.20 (7.40-12.00) fL Neut % (Auto) 45.7 L 53.5 (48.0-80.0) % Lymph % (Auto) 39.4 34.6 (16.0-40.0) % Jerome % (Auto) 11.5 8.7 (0.0-15.0) % Eos % (Auto) 3.2 3.0 (0.0-7.0) % Baso % (Auto) 0.2 0.2 (0.0-1.5) % Neut # (Auto) 5.6 5.3 (1.4-5.7) K/uL Lymph # (Auto) 4.8 H 3.4 H (0.6-2.4) K/uL Jerome # (Auto) 1.4 H 0.9 H (0.0-0.8) K/uL Eos # (Auto) 0.4 0.3 (0.0-0.7) K/uL Baso # (Auto) 0.0 0.0 (0.0-0.1) K/uL Nucleated RBC % 0.0 0.0 /100WBC Nucleated RBCs # 0 0 K/uL Sodium (136-148) mmol/L Potassium (3.5-5.1) mmol/L Chloride (98-107) mmol/L Carbon Dioxide (21.0-32.0) mmol/L BUN (7.0-18.0) mg/dL Creatinine (0.8-1.3) mg/dL Est Cr Clr Drug Dosing mL/min Estimated GFR (MDRD) ml/min Glucose (74-106) mg/dL POC Glucose 138 H (60-110) mg/dL Calcium (8.5-10.1) mg/dL Blood Type Antibody Screen Crossmatch 11/25/18 11/25/18 Range/Units 06:30 06:43 WBC (4.0-11.0) K/uL RBC (4.50-5.90) M/uL Hgb (13.0-17.0) g/dL Hct (38.0-50.0) % MCV (80.0-98.0) fL MCH (27.0-32.0) pg MCHC (31.0-37.0) g/dL RDW Std Deviation (28.0-62.0) fl RDW Coeff of Eleonora (11.0-15.0) % Plt Count (150-400) K/uL MPV (7.40-12.00) fL Neut % (Auto) (48.0-80.0) % Lymph % (Auto) (16.0-40.0) % Jerome % (Auto) (0.0-15.0) % Eos % (Auto) (0.0-7.0) % Baso % (Auto) (0.0-1.5) % Neut # (Auto) (1.4-5.7) K/uL Lymph # (Auto) (0.6-2.4) K/uL Jerome # (Auto) (0.0-0.8) K/uL Eos # (Auto) (0.0-0.7) K/uL Baso # (Auto) (0.0-0.1) K/uL Nucleated RBC % /100WBC Nucleated RBCs # K/uL Sodium 141 (136-148) mmol/L Potassium 4.3 (3.5-5.1) mmol/L Chloride 108 H (98-107) mmol/L Carbon Dioxide 24.4 (21.0-32.0) mmol/L BUN 19 H (7.0-18.0) mg/dL Creatinine 0.9 (0.8-1.3) mg/dL Est Cr Clr Drug Dosing 83.46 mL/min Estimated GFR (MDRD) > 60.0 ml/min Glucose 135 H (74-106) mg/dL POC Glucose 124 H (60-110) mg/dL Calcium 7.9 L (8.5-10.1) mg/dL Blood Type Antibody Screen Crossmatch Med Orders - Current: Current Medications Guaifenesin (Mucinex) 600 mg PO Q12H PRN PRN Reason: Congestion Last Admin: 11/24/18 17:28 Dose: 600 mg Pantoprazole Sodium 40 mg/ (Sodium Chloride) 10 mls @ 300 mls/hr IVPUSH Q12H [facility] Last Admin: 11/25/18 05:39 Dose: 300 mls/hr Insulin Aspart (Novolog) 0 unit SUBCUT TIDAC [facility]; Protocol Last Admin: 11/25/18 07:52 Dose: Not Given Discontinued Medications Furosemide (Lasix) 40 mg IVPUSH NOW ONE Stop: 11/25/18 10:51 Lactated Ringer's (Ringers, Lactated) 1,000 mls @ 75 mls/hr IV ASDIRECTED [facility] Last Admin: 11/25/18 06:35 Dose: 75 mls/hr
[2018-11-25 11:18] VITALS: BP 130/82
--- NOTE | 2018-11-25 11:57 | PCM.SURGPN ---
- General Info Date of Service: 11/25/18 - Review of Systems Gastrointestinal: Reports: No Symptoms - Patient Data Vitals - Most Recent: Last Vital Signs Temp 97.7 F 11/25/18 11:00 Pulse 95 11/25/18 11:00 Resp 20 11/25/18 11:00 BP 130/82 11/25/18 11:00 Pulse Ox 96 11/25/18 11:00 Weight - Most Recent: 256 lb 6 oz I&O - Last 24 Hours: Intake & Output 11/24/18 11/25/18 11/25/18 22:59 06:59 14:59 Intake Total 2028 1148 Output Total 710 Balance 2028 438 Lab Results Last 24 Hrs: Laboratory Results - last 24 hr 11/23/18 11/23/18 11/24/18 Range/Units 12:25 12:25 17:28 WBC (4.0-11.0) K/uL RBC (4.50-5.90) M/uL Hgb (13.0-17.0) g/dL Hct (38.0-50.0) % MCV (80.0-98.0) fL MCH (27.0-32.0) pg MCHC (31.0-37.0) g/dL RDW Std Deviation (28.0-62.0) fl RDW Coeff of Eleonora (11.0-15.0) % Plt Count (150-400) K/uL MPV (7.40-12.00) fL Neut % (Auto) (48.0-80.0) % Lymph % (Auto) (16.0-40.0) % Benzie % (Auto) (0.0-15.0) % Eos % (Auto) (0.0-7.0) % Baso % (Auto) (0.0-1.5) % Neut # (Auto) (1.4-5.7) K/uL Lymph # (Auto) (0.6-2.4) K/uL Benzie # (Auto) (0.0-0.8) K/uL Eos # (Auto) (0.0-0.7) K/uL Baso # (Auto) (0.0-0.1) K/uL Nucleated RBC % /100WBC Nucleated RBCs # K/uL Sodium (136-148) mmol/L Potassium (3.5-5.1) mmol/L Chloride (98-107) mmol/L Carbon Dioxide (21.0-32.0) mmol/L BUN (7.0-18.0) mg/dL Creatinine (0.8-1.3) mg/dL Est Cr Clr Drug Dosing mL/min Estimated GFR (MDRD) ml/min Glucose (74-106) mg/dL POC Glucose 138 H (60-110) mg/dL Calcium (8.5-10.1) mg/dL Blood Type A POSITIVE Antibody Screen NEGATIVE Crossmatch See Detail See Detail 11/24/18 11/25/18 11/25/18 Range/Units 19:40 06:30 06:30 WBC 12.28 H 9.85 (4.0-11.0) K/uL RBC 3.12 L 3.66 L (4.50-5.90) M/uL Hgb 8.8 L 10.4 L (13.0-17.0) g/dL Hct 28.0 L 32.5 L (38.0-50.0) % MCV 89.7 88.8 (80.0-98.0) fL MCH 28.2 28.4 (27.0-32.0) pg MCHC 31.4 32.0 (31.0-37.0) g/dL RDW Std Deviation 51.8 50.8 (28.0-62.0) fl RDW Coeff of Eleonora 16 H 16 H (11.0-15.0) % Plt Count 244 203 (150-400) K/uL MPV 9.30 9.20 (7.40-12.00) fL Neut % (Auto) 45.7 L 53.5 (48.0-80.0) % Lymph % (Auto) 39.4 34.6 (16.0-40.0) % Benzie % (Auto) 11.5 8.7 (0.0-15.0) % Eos % (Auto) 3.2 3.0 (0.0-7.0) % Baso % (Auto) 0.2 0.2 (0.0-1.5) % Neut # (Auto) 5.6 5.3 (1.4-5.7) K/uL Lymph # (Auto) 4.8 H 3.4 H (0.6-2.4) K/uL Benzie # (Auto) 1.4 H 0.9 H (0.0-0.8) K/uL Eos # (Auto) 0.4 0.3 (0.0-0.7) K/uL Baso # (Auto) 0.0 0.0 (0.0-0.1) K/uL Nucleated RBC % 0.0 0.0 /100WBC Nucleated RBCs # 0 0 K/uL Sodium 141 (136-148) mmol/L Potassium 4.3 (3.5-5.1) mmol/L Chloride 108 H (98-107) mmol/L Carbon Dioxide 24.4 (21.0-32.0) mmol/L BUN 19 H (7.0-18.0) mg/dL Creatinine 0.9 (0.8-1.3) mg/dL Est Cr Clr Drug Dosing 83.46 mL/min Estimated GFR (MDRD) > 60.0 ml/min Glucose 135 H (74-106) mg/dL POC Glucose (60-110) mg/dL Calcium 7.9 L (8.5-10.1) mg/dL Blood Type Antibody Screen Crossmatch 11/25/18 Range/Units 06:43 WBC (4.0-11.0) K/uL RBC (4.50-5.90) M/uL Hgb (13.0-17.0) g/dL Hct (38.0-50.0) % MCV (80.0-98.0) fL MCH (27.0-32.0) pg MCHC (31.0-37.0) g/dL RDW Std Deviation (28.0-62.0) fl RDW Coeff of Eleonora (11.0-15.0) % Plt Count (150-400) K/uL MPV (7.40-12.00) fL Neut % (Auto) (48.0-80.0) % Lymph % (Auto) (16.0-40.0) % Benzie % (Auto) (0.0-15.0) % Eos % (Auto) (0.0-7.0) % Baso % (Auto) (0.0-1.5) % Neut # (Auto) (1.4-5.7) K/uL Lymph # (Auto) (0.6-2.4) K/uL Benzie # (Auto) (0.0-0.8) K/uL Eos # (Auto) (0.0-0.7) K/uL Baso # (Auto) (0.0-0.1) K/uL Nucleated RBC % /100WBC Nucleated RBCs # K/uL Sodium (136-148) mmol/L Potassium (3.5-5.1) mmol/L Chloride (98-107) mmol/L Carbon Dioxide (21.0-32.0) mmol/L BUN (7.0-18.0) mg/dL Creatinine (0.8-1.3) mg/dL Est Cr Clr Drug Dosing mL/min Estimated GFR (MDRD) ml/min Glucose (74-106) mg/dL POC Glucose 124 H (60-110) mg/dL Calcium (8.5-10.1) mg/dL Blood Type Antibody Screen Crossmatch Med Orders - Current: Current Medications Guaifenesin (Mucinex) 600 mg PO Q12H PRN PRN Reason: Congestion Last Admin: 11/24/18 17:28 Dose: 600 mg Pantoprazole Sodium 40 mg/ (Sodium Chloride) 10 mls @ 300 mls/hr IVPUSH Q12H [facility] Last Admin: 11/25/18 05:39 Dose: 300 mls/hr Insulin Aspart (Novolog) 0 unit SUBCUT TIDAC [facility]; Protocol Last Admin: 11/25/18 07:52 Dose: Not Given Discontinued Medications Furosemide (Lasix) 40 mg IVPUSH NOW ONE Stop: 11/25/18 10:51 Last Admin: 11/25/18 10:57 Dose: 40 mg Lactated Ringer's (Ringers, Lactated) 1,000 mls @ 75 mls/hr IV ASDIRECTED [facility] Last Admin: 11/25/18 06:35 Dose: 75 mls/hr - Exam GI/Abdominal Exam: Soft, Non-Tender - Problem List Review Problem List Initiated/Reviewed/Updated: Yes - My Orders Last 24 Hours: Active Orders 24 hr Category Date Time Status Notify Provider Consults [RC] ASDIRECTED [facility] 11/24/18 19:39 Active Verify Patient Consent Obtain [RC] ASDIRECTED Care 11/25/18 05:00 Active Consult to Physician [CONS] Routine Cons 11/24/18 19:39 Active Nothing per Oral After Midnight Diet [DIET] Diet 11/24/18 Dinner Active BASIC METABOLIC PANEL,BMP [CHEM] AM Lab 11/26/18 05:11 Ordered CBC WITH AUTO DIFF [HEME] AM Lab 11/26/18 05:11 Ordered guaiFENesin [Mucinex] Med 11/24/18 16:55 Active 600 mg PO Q12H PRN Transfuse Red Blood Cells [COMM] Routine Oth 11/24/18 20:08 Ordered Medication Orders Guaifenesin (Mucinex) 600 mg PO Q12H PRN PRN Reason: Congestion Last Admin: 11/24/18 17:28 Dose: 600 mg Pantoprazole Sodium 40 mg/ (Sodium Chloride) 10 mls @ 300 mls/hr IVPUSH Q12H [facility] Last Admin: 11/25/18 05:39 Dose: 300 mls/hr Infusion: 11/24/18 17:49 Dose: 300 mls/hr Admin: 11/24/18 17:47 Dose: 300 mls/hr Infusion: 11/24/18 03:55 Dose: 300 mls/hr Admin: 11/24/18 03:53 Dose: 300 mls/hr Infusion: 11/23/18 16:08 Dose: 300 mls/hr Admin: 11/23/18 16:06 Dose: 300 mls/hr [facility]; Protocol Last Admin: 11/25/18 07:52 Dose: Not Given Admin: 11/24/18 17:30 Dose: Not Given Admin: 11/24/18 12:21 Dose: Not Given Admin: 11/24/18 09:01 Dose: 2 units Admin: 11/23/18 17:19 Dose: 2 units - Assessment Assessment (Free Text/Narrative):: cxr > early pulm edema; pt co SOB; edg cancelled for concerned cardiovascular; agree with transfer; thks for the consult - Plan Plan (Free Text/Narrative):: cxr > early pulm edema; pt co SOB; edg cancelled for concerned cardiovascular; agree with transfer; thks for the consult
== END 2018-11-25 12:30 ==
LOC: MW.MS 15:33
PROVIDERS: ADMIT Internal Medicine; ATTEND Internal Medicine
DX: D62 Acute posthemorrhagic anemia (principal); K92.2 Gastrointestinal hemorrhage, unspecified; C34.92 Malignant neoplasm of unspecified part of left bronchus or lung; R53.1 Weakness; R53.83 Other fatigue; R06.02 Shortness of breath; C79.51 Secondary malignant neoplasm of bone; E78.00 Pure hypercholesterolemia, unspecified; I10 Essential (primary) hypertension; K21.9 Gastro-esophageal reflux disease without esophagitis; E11.9 Type 2 diabetes mellitus without complications; E66.9 Obesity, unspecified; Z79.899 Other long term (current) drug therapy; Z68.32 Body mass index [BMI] 32.0-32.9, adult; Z87.891 Personal history of nicotine dependence; Z79.82 Long term (current) use of aspirin; Z79.84 Long term (current) use of oral hypoglycemic drugs
CPT/HCPCS: 36415; 36430; 71045; 80048; 82272; 82962; 85025; 86850; 86900; 86901; 86920; 86921; 86922; 96374; 96375; 96376; A9270; C9113; G0378; J1815; J1940; J7050; J7120; P9016

== ENCOUNTER 2019-01-28 18:05 | Inpatient (IN) | payer MEDICARE, BC ==
[2019-01-28] MEDS ORDERED: Morphine 10 MG/0.5 ML Oral Syringe PO PRN ×2 (18:11→18:26)
[2019-01-28] MEDS ORDERED: LORazepam 1 MG Tab PO PRN (18:13)
[2019-01-28] MEDS ORDERED: Haloperidol Lactate 2 MG/ML Oral Soln 15 ML Bottle PO PRN (18:15)
[2019-01-28] MEDS ORDERED: Bisacodyl 10 MG Supp RECTAL PRN (18:17)
[2019-01-28] MEDS: Hyoscyamine 0.125 MG Tab.SL SL PRN (18:54)
[2019-01-29] MEDS: Morphine 10 MG/0.5 ML Oral Syringe PO PRN ×2 (03:32→08:53)
[2019-01-29] MEDS: Hyoscyamine 0.125 MG Tab.SL SL PRN ×2 (03:40→11:42)
[2019-01-29] MEDS ORDERED: fentaNYL 50 MCG/HR Transdermal Patch TRDERM SCH (09:00)
--- NOTE | 2019-01-29 11:37 | PCM.PN ---
- General Info Date of Service: 01/29/19 Subjective Update: Patient admitted for hospice secondary to lung cancer. Patient resting comfortably in bed. Not responding to questions. - Patient Data Vitals - Most Recent: Last Vital Signs Temp 96.6 F 01/29/19 08:00 Pulse 146 H 01/29/19 08:00 Resp 18 01/29/19 08:00 BP 84/47 L 01/29/19 08:00 Pulse Ox 83 L 01/29/19 08:00 Weight - Most Recent: 100.834 kg I&O - Last 24 Hours: Intake & Output 01/28/19 01/29/19 01/29/19 22:59 06:59 14:59 Output Total 0 Balance 0 Med Orders - Current: Current Medications Bisacodyl (Dulcolax) 10 mg RECTAL DAILY PRN PRN Reason: Constipation Fentanyl (Duragesic) 50 mcg TRDERM Q72H [facility] Last Admin: 01/29/19 08:52 Dose: 50 mcg Haloperidol Lactate (Haldol 2 Mg/Ml Soln) 2 mg PO Q6H PRN PRN Reason: Agitation Hyoscyamine (Hyomax-Sl) 0.125 mg SL Q4H PRN PRN Reason: Other Last Admin: 01/29/19 03:40 Dose: 0.125 mg Lorazepam (Ativan) 1 mg PO Q1H PRN PRN Reason: Shortness of Breath Morphine Sulfate (Morphine 10 Mg/0.5 Ml Oral Syringe) 20 mg PO Q1H PRN PRN Reason: Other Last Admin: 01/29/19 08:53 Dose: 20 mg Discontinued Medications Morphine Sulfate (Morphine 10 Mg/0.5 Ml Oral Syringe) 20 mg PO Q1H PRN PRN Reason: Other Morphine Sulfate (Morphine 10 Mg/0.5 Ml Oral Syringe) 1 mg PO Q1H PRN PRN Reason: Other - Exam General: Other (resting comfortably). No: Alert, Oriented Lungs: Normal Respiratory Effort Cardiovascular: Tachycardia GI/Abdominal Exam: Normal Bowel Sounds, Soft, Non-Tender, No Distention Extremities: No Pedal Edema Skin: Warm, Dry - Problem List Review Problem List Initiated/Reviewed/Updated: Yes - Assessment Assessment:: 78 year old male admitted for hospice secondary to lung cancer- continue comfort care measures and medications. Patient seems comfortable.
[2019-01-30] MEDS: Hyoscyamine 0.125 MG Tab.SL SL PRN ×3 (03:59→18:36)
[2019-01-30] MEDS: Morphine 10 MG/0.5 ML Oral Syringe PO PRN ×2 (06:00→08:53)
[2019-01-30 09:12] VITALS: BP 106/57; PULSE 111
== END 2019-01-30 22:55 | disposition expired | DRG 951 ==
LOC: MW.MS 18:05
PROVIDERS: ADMIT Internal Medicine; ATTEND Internal Medicine
DX: Z51.5 Encounter for palliative care (principal); C34.90 Malignant neoplasm of unspecified part of unspecified bronchus or lung; Z66 Do not resuscitate
CPT/HCPCS: A9270-GY